=== PATIENT | female | born 1950 | race Caucasian/White ===

== ENCOUNTER → 2017-10-15 | Outpatient (CLI) | payer MEDICARE | END | disposition home or self-care (01) | LOC: LABPAT 11:15 | PROVIDERS: ATTEND Orthopaedic Surgery | DX: Z01.812 Encounter for preprocedural laboratory examination (principal); M16.11 Unilateral primary osteoarthritis, right hip | CPT/HCPCS: 36415; 87070 ==

== ENCOUNTER 2017-10-26 05:35 | Inpatient (IN) | payer MEDICARE ==
[2017-10-21 12:19] VITALS: BMI 38.7
--- NOTE | 2017-10-25 10:22 | HP ---
HISTORY AND PHYSICAL REASON FOR ADMISSION: Surgery is scheduled for 10/26/2017 Joy Faust is a 67-year-old patient seen with symptomatic right hip osteoarthritis. After having treatment options discussed, she elected to proceed with right total hip arthroplasty. Consent regarding procedure was obtained. Medical clearance was provided by Dr. White. PAST MEDICAL HISTORY: Hypertension, asthma, egw-vowozdz-jvaqflsvf diabetes. PAST SURGICAL HISTORY: Bilateral knee arthroscopy. MEDICATIONS: Ibuprofen, metformin, enalapril. ALLERGIES: LATEX, NICKEL. SOCIAL HISTORY: Patient denies tobacco use. PHYSICAL EXAMINATION: Evaluation of the right hip: Range of motion is severely limited with severe pain. There is diffuse tenderness about the hip girdle. Positive impingement sign. Straight leg raise negative. Distal neurovascular exam is intact. RADIOGRAPHS: Right hip radiographs reveal severe osteoarthritis. IMPRESSION: 1. Right hip osteoarthritis. 2. Hypertension. 3. Sli-kbkdwde-xystswiad diabetes. PLAN: Direct anterior right total hip arthroplasty. Surgery is scheduled for 10/26/2017. MMODL / IJN: [id number] /
[~2017-10-26 05:35] MED LIST: ACETAMINOPHEN TAB 500 MG TAB PO ONE; DEXAMETHASONE SOD PHOSPHATE 10 MG/ML 1 ML VIAL IV ONE; LIDOCAINE 1% 20 ML VIAL (10MG/ML) FOR IV START INTRADERMA PRN; MELOXICAM 7.5 MG TAB PO ONE; MIDAZOLAM 2 MG/2 ML VIAL IV PRN; ONDANSETRON ODT 4 MG TAB PO ONE; TRANEXAMIC ACID 1,000 MG in SODIUM CHLORIDE 0.9% 50 ML IVPB ONE; ceFAZolin IN SWFI 2 GM/20 ML SYRINGE IVP ONE; fentaNYL (PF) 50 MCG/ML 2 ML AMP IV PRN
[2017-10-26] MEDS: LACTATED RINGERS 1,000 ML IV SCH (06:27)
[2017-10-26] MEDS ORDERED: ONDANSETRON 4 MG/2 ML VIAL ONE (06:31)
[2017-10-26] MEDS: ONDANSETRON 4 MG/2 ML VIAL IVP ONE ×2 (06:35→07:10)
[2017-10-26] MEDS: SCOPOLAMINE 1.5MG/72HR PATCH TRANSDERM ONE ×2 (06:35→07:13)
[2017-10-26] MEDS ORDERED: MIDAZOLAM 2 MG/2 ML VIAL IVP ONE (06:58)
[2017-10-26 07:05] LABS: Glucose,Whole Blood 108 mg/dL (75-99)
[2017-10-26] MEDS ORDERED: ROPIVACAINE 246.25 MG, EPINEPHrine 0.5 MG, KETOROLAC 30 MG, cloNIDine HCL/PF 80 MCG, WA... MISCELLANE ONE ×10 (07:27→07:41)
[2017-10-26] MEDS ORDERED: TRANEXAMIC ACID 1,000 MG/10 ML VIAL ONE (07:28)
[2017-10-26] MEDS ORDERED: MIDAZOLAM 2 MG/2 ML VIAL ONE (07:28)
[2017-10-26] MEDS ORDERED: SODIUM CHLORIDE 0.9% 100 ML BAG ONE (07:28)
[2017-10-26] MEDS ORDERED: diphenhydrAMINE 50 MG/ML 1 ML VIAL ONE (07:28)
[2017-10-26] MEDS ORDERED: fentaNYL (PF) 50 MCG/ML 2 ML AMP ONE (07:28)
[2017-10-26] MEDS ORDERED: ceFAZolin 3,000 MG in SODIUM CHLORIDE 0.9% IRRIGATIO 3,000 ML IRRIGATION ONE (08:08)
[2017-10-26] MEDS ORDERED: LACTATED RINGERS 1,000 ML IV ONE (08:52)
[2017-10-26] MEDS ORDERED: NALOXONE 0.4 MG/ML 1 ML VIAL IV PRN (09:58)
[2017-10-26] MEDS ORDERED: HYDROmorphone 2 MG TAB PO PRN ×2 (09:58)
[2017-10-26] MEDS ORDERED: HYDROmorphone 4 MG TABLET PO PRN (09:58)
[2017-10-26] MEDS ORDERED: ONDANSETRON 4 MG/2 ML VIAL IVP PRN (09:58)
[2017-10-26] MEDS ORDERED: hydrOXYzine PAMOATE 25 MG CAP PO PRN (09:58)
--- NOTE | 2017-10-26 09:58 | P.OP ---
Date of Procedure: 10/26/17 Preoperative Diagnosis: Right hip osteoarthritis Postoperative Diagnosis: Right hip osteoarthritis Procedure(s) Performed: Direct anterior right total hip arthroplasty Implants: 1. Depuy Corail KLA size 12 press-fit femoral stem 2. Depuy pinnacle press-fit acetabular shell 52 mm 3. Depuy pinnacle polyethylene acetabular liner neutral 32 mm ID 52 mm OD 4. Biolox delta ceramic femoral head +532 mm Anesthesia: regional (Fascia iliaca block), local, spinal Surgeon: Landry Iverson Mangle Press Catcher #1: Rashad Van Estimated Blood Loss (ml): 200 Pathology: other (Femoral head) Condition: stable Disposition: PACU Indications for Procedure: 67-year-old patient seen was symptomatic right hip osteoarthritis. After treatment options were discussed, she elected to proceed with total hip arthroplasty. Operative Findings: See description of procedure Description of Procedure: The patient was taken to the operative suite after having undergone a fascia iliaca block by the department of anesthesia. Patient underwent a spinal anesthetic by the department of anesthesia. Patient was then transferred to the [place] table. Patient was given preoperative IV antibiotics and TXA. Both lower extremities were placed in standard leg spars. The hip was then prepped and draped in the normal sterile orthopedic fashion. A standard anterior incision was made beginning 3 cm lateral and 1 cm distal to the ASIS extending 10 cm. Dissection was then carried down through the subcutaneous soft tissues down to the fascia overlying the tensor fascia victor hugo. An incision was now made through the fascia. Careful dissection was taken down exposing the tensor fascia victor hugo muscle. A Cobra retractor was now placed along the medial femoral neck and a second one along the lateral femoral neck. The venous circumflex vessels were now identified, cauterized and clipped. We identified the anterior hip capsule. An incision was made through the hip capsule along the lateral border. Tag sutures were then placed along the anterior capsule and lateral capsule. We then performed a capsulotomy. Retractors were now placed around the femoral neck itself. A Cobra retractor was now placed along the anterior acetabulum. Good exposure was now noted of the femoral head/neck complex. Residual labrum was debrided out. We placed the extremity into 3 turns of fine traction. We were then able to introduce a skid in between the femoral head and acetabulum. A placed a awl into the femoral head. We took 2 turns of traction off the extremity. Rotation was now released. The femoral head was then dislocated without difficulty. Additional releasing was performed of the capsule. The head was then reduced. All traction was released. A femoral neck cut was now made with a sagittal saw. It was completed with an osteotome at the lateral neck area. The femoral head was now removed without difficulty. The extremity was now rotated to 45 of external rotation. It was locked in position. Residual labrum was now debrided out. Serial reaming was performed of the acetabulum. Once we reached the appropriate size and a trial was position and fit nicely. The appropriate size was now chosen opened and made available. The wound was irrigated with pulse lavage mechanical irrigation. It was introduced into the acetabulum without difficulty. The C-arm/fluoroscopy was now brought into the operative field. We made sure we had a true AP pelvic view. We now under direct C-arm/ fluoroscopy introduced into the acetabular component with appropriate version and inclination. It was well seated and stable but I still introduced 2 screws to enhanced the fixation. The C-arm was pulled back. An appropriate liner was introduced and clicked into position. It was felt to be not all the way seated. After multiple attempts I went ahead and and removed the liner. A second liner was utilized and it locked into position nicely. At this point retractors were removed. The extremity was now placed into 120 external rotation with no traction. The leg was now dropped to the ground and adducted. Appropriate retractors were now positioned along the proximal femur. We also placed our femoral look into position. Additional capsular releasing was performed to gain access to the proximal femur. We now used a box osteotome. A canal finder was now utilized. Serial broaching was now performed until we reached the appropriate size with good overall rotational stability. Appropriate calcar planing was performed. A trial head/neck was placed into position. The hip was now reduced. The C-arm/fluoroscopy was brought back into the operative field. A spot film was obtained of the nonoperative hip. A spot film was obtained of the trial components. Overlays were performed, we noted good overall alignment and positioning for determining leg length. The C- arm/fluoroscopy was pulled back. Retractors were repositioned and the hip was dislocated. The leg was again taken down to the ground and adducted. Appropriate retractors were repositioned as well as the femoral hook. All trial components were removed. The wound was irrigated with pulse lavage mechanical irrigation. The femoral implant was opened along with the femoral head. The femoral implant was introduced with good purchase and fixation noted. The femoral head was introduced with good positioning and fixation noted. Retractors were now removed. The hip was now reduced. There appeared be good positioning of the hip. This was confirmed under fluoroscopy and a spot film was obtained to document that. A second gram of TXA was given. Bipolar cautery had been utilized intermittently through the procedure for hemostasis. The wound was irrigated copiously with pulse lavage mechanical irrigation. The superficial soft tissues were infiltrated with local analgesic. The fascia was repaired with Vicryl suture. The subcutaneous soft tissues were repaired in layers with Vicryl suture. The skin was approximated with pernio/Dermabond. Sterile dressings were applied. Patient was then awakened, transferred to a bed and taken to recovery in stable condition. John SNYDER assisted with the procedure.
--- NOTE | 2017-10-26 09:59 | XR ---
Limited right HISTORY: Anterior hip replacement Intraoperative C-arm image documents the procedure
--- NOTE | 2017-10-26 10:00 | FL ---
Fluoroscopy HISTORY: Anterior hip replacement 30 seconds fluoroscopy time supplied to the referring clinician. 1 intraoperative C-arm images docum ent the procedure. See dictated report from orthopedic surgery.
[2017-10-26 10:46] LABS: Glucose,Whole Blood 143 mg/dL (75-99)
[2017-10-26] MEDS: traMADol 50 MG TAB PO SCH ×3 (12:43→22:00)
--- NOTE | 2017-10-26 13:24 | P.ONQ ---
Anesthesiology Proc Note - PNB - Peripheral Nerve Block Performed Right Fascia Iliaca Single Time Out Performed: Yes Procedure Start Time: 06:59 Procedure Stop Time: 07:04 Indication: Acute Post-Operative Pain, Requested by physician Sedation Type: Awake Preparation: Sterile Prep Position: Supine Needle Size: 100mm (4") Needle Gauge: 21 Technique: Ultrasound Injectate: 0.5% Ropivacaine (see comment for volume) (ropi .25% 40cc) Blood Aspirated: No Pain Paresthesia on Injection Noted: No Resistance on Injection: Normal Events: Uneventful and Well Tolerated
[2017-10-26] MEDS: ceFAZolin IN SWFI 2 GM/20 ML SYRINGE IVP SCH (16:06)
[2017-10-26] MEDS: HYDROcodone/APAP 7.5-325MG 1 EACH TAB PO PRN (16:06)
--- NOTE | 2017-10-26 16:08 | CONS ---
CONSULTATION DATE OF CONSULTATION: 10/26/2017 REASON FOR CONSULTATION: Medical management requested by Dr. Iverson. CONSULTATION: This is a 67-year-old patient of Dr. White. Chronic stable medical conditions include asthma, diabetes, hypertension, thyromegaly, and osteoarthritis of the hands. The patient has undergone right total hip arthroplasty. Some pain is present. No nausea or vomiting. Did tolerate a clear liquid breakfast. No chest pain. No cardiac history. Sitting up on bed. Patient is bothered by arthritis in the hands specifically and also some other joints. REVIEW OF SYSTEMS: CONSTITUTIONAL: None. HEENT: None. RESPIRATORY: None. CARDIOVASCULAR: None. GASTROINTESTINAL: None. GENITOURINARY: None. MUSCULOSKELETAL: Arthritic pain, especially in the hand and other joints. DERMATOLOGICAL: None. HEMATOLOGICAL: None. LYMPHATICS: None. PSYCHIATRY: None. NEUROLOGICAL: None. PAST MEDICAL HISTORY: 1. Asthma. 2. Diabetes, type 2. 3. Hypertension. 4. Osteoarthritis. 5. Thyromegaly, being followed. PAST SURGICAL HISTORY: 1. Breast surgery. 2. . 3. Hysterectomy. 4. Bilateral knee replacements. PAST PSYCH HISTORY: PTSD. SOCIAL HISTORY: Does not smoke. Alcohol rarely. . FAMILY HISTORY: Hyperlipidemia, hypertension. HOME MEDICATIONS: 1. Metformin 500 mg p.o. daily. 2. Multivitamin 1 tablet p.o. daily. 3. Maxzide 1 puff daily p.r.n. 4. Vasotec 10 mg b.i.d. ALLERGIES: 1. LATEX. 2. NICKEL. 3. MORPHINE. PHYSICAL EXAMINATION: Temperature 97.1, pulse 72, respiration 18, blood pressure 120/57, pulse ox 94% on room air. GENERAL APPEARANCE: Well built; BMI 38.7. Sitting on bed, comfortable. EYES: Pupils equal. Conjunctivae normal. HEENT: External appearance of nose and ears normal. Oral cavity normal. NECK: JVD not raised. Mass not palpable. RESPIRATORY: Effort normal. Lungs are clear. CARDIOVASCULAR: First and second sounds normal. No edema. ABDOMEN: Soft, nontender. Liver and spleen not palpable. LYMPHATIC: No lymph node palpable in neck or axillae. PSYCHIATRY: Alert and oriented x3. Mood and affect normal. NEUROLOGICAL: Pupils equal. Cranial nerves grossly intact. Power and sensation grossly intact. MUSCULOSKELETAL: Evidence of OA, especially in the hands. Dressing over the right hip. INVESTIGATIONS: Accu-Cheks are noted. ASSESSMENT: 1. Right total hip arthroplasty. 2. Primary osteoarthritis, especially of the hands and other joints. 3. Thyromegaly, being followed as an outpatient. 4. Essential hypertension. 5. Diabetes mellitus, type 2, on oral hypoglycemic. 6. Intermittent asthma, controlled. 7. Obesity; body mass index 38.7. PLAN: Home medications are resumed. Accu-Cheks to be followed. DVT prophylaxis. Patient is getting Lovenox per Dr. Iverson. Will have patient see a dietitian for weight loss measures. Patient should follow with Dr. White after discharge. Care was discussed. Thank you, Dr. Iverson. ENMANUEL / ASHOKN: [id number] /
[2017-10-26 17:24] LABS: Glucose,Whole Blood 178 mg/dL (75-99)
[2017-10-26] MEDS: INSULIN ASPART 100 UNIT/ML 1 ML 10 ML VIAL SQ SCH (18:11)
[2017-10-26 19:50] VITALS: RESP 16
[2017-10-26 20:57] LABS: Glucose,Whole Blood 138 mg/dL (75-99)
[2017-10-26] MEDS ORDERED: SENNOSIDES-DOCUSATE SODIUM 1 EACH TAB PO SCH (21:00)
[2017-10-26] MEDS: metFORMIN 500 MG TAB PO SCH (21:55)
[2017-10-27] MEDS: LACTATED RINGERS 1,000 ML IV SCH (02:06)
[2017-10-27] MEDS: ceFAZolin IN SWFI 2 GM/20 ML SYRINGE IVP SCH (02:06)
[2017-10-27] MEDS: HYDROcodone/APAP 7.5-325MG 1 EACH TAB PO PRN ×3 (02:19→13:09)
[2017-10-27 07:15] LABS: Glucose,Whole Blood 119 mg/dL (75-99)
[2017-10-27 07:20] VITALS: BP 122/69; PULSE 82; TEMP 97.8
[2017-10-27 07:59] LABS: Basophils % (A) 0 %; Eosinophils % (A) 0 %; HCT 34.3 % (34.0-46.0); HGB 11.2 gm/dL (11.4-16.0); Lymphocytes # (A) 1.1 k/uL (1.0-4.8); Lymphocytes % (A) 14 %; MCH 28.5 pg (25.0-35.0); MCHC 32.5 g/dL (31.0-37.0); MCV 87.6 fL (80.0-100.0); Mean Platelet Volume 8.9; Monocytes # (A) 0.5 k/uL (0-1.0); Monocytes % (A) 7 %; Neutrophils # (A) 5.8 k/uL (1.3-7.7); Neutrophils % (A) 77 %; Platelet Count 206 k/uL (150-450); RBC 3.92 m/uL (3.80-5.40); RDW 13.9 % (11.5-15.5); WBC 7.6 k/uL (3.8-10.6)
[2017-10-27] MEDS: INSULIN ASPART 100 UNIT/ML 1 ML 10 ML VIAL SQ SCH ×2 (08:10→13:04)
[2017-10-27] MEDS ORDERED: FAMOTIDINE 20 MG TAB PO SCH (09:00)
[2017-10-27] MEDS ORDERED: ENOXAPARIN 40 MG/0.4 ML SYRINGE SQ SCH (09:00)
[2017-10-27] MEDS ORDERED: MELOXICAM 7.5 MG TAB PO SCH (09:00)
[2017-10-27] MEDS ORDERED: LISINOPRIL 20 MG TAB PO SCH (09:00)
[2017-10-27] MEDS: traMADol 50 MG TAB PO SCH (10:10)
[2017-10-27 11:54] LABS: Glucose,Whole Blood 114 mg/dL (75-99)
[2017-10-27] MEDS: metFORMIN 500 MG TAB PO SCH (13:04)
--- NOTE | 2017-10-27 13:26 | P.PN ---
Subjective Progress Note Date: 10/27/17 Principal diagnosis: Status post right total hip arthroplasty Patient seen today resting in her hospital bed, she appears comfortable. Her pain is well-controlled. She's ambulated well with therapy, she is urinating on her own. She denies any headaches, lightheadedness, chest pain or shortness of breath. Objective - Vital Signs Vital signs: Vital Signs Temp 97.8 F 10/27/17 07:17 Pulse 82 10/27/17 07:17 Resp 16 10/27/17 07:17 BP 122/69 10/27/17 07:17 Pulse Ox 96 10/27/17 07:17 Intake & Output 10/26/17 10/27/17 10/27/17 18:59 06:59 18:59 Intake Total 1598 1200 Output Total 1100 Balance 498 1200 Weight 108.862 kg Intake: IV 1101 Intake, IV Titration 160 1200 Amount Lactated Ringers 1,000 ml 160 1200 @ 20 mls/hr IV .Q24H COLLEEN Rx#:[id number] Oral 337 Output: Urine 900 Estimated Blood Loss 200 Other: # Voids 2 2 - Exam Right lower extremity: Incision is clean, dry, and intact. The prineo tape is in good condition. There is minimal soft tissue swelling and ecchymosis surrounding the medial and lateral aspects of the incision. Calf is soft, no tenderness with palpation. Plantar flexion, dorsiflexion, EHL, FHL are intact. Sensory exam to light touch throughout the extremity is intact, dorsal pedis pulses 2+. - Labs CBC & Chem 7: 10/27/17 06:42 Labs: Abnormal Lab Results - Last 24 Hours (Table) 10/26/17 10/26/17 10/27/17 Range/Units 17:21 20:54 06:42 Hgb 11.2 L (11.4-16.0) gm/dL POC Glucose (mg/dL) 178 H 138 H (75-99) mg/dL 10/27/17 10/27/17 Range/Units 07:01 11:49 Hgb (11.4-16.0) gm/dL POC Glucose (mg/dL) 119 H 114 H (75-99) mg/dL Assessment and Plan Plan: Assessment: Postoperative day #1 status post right total hip arthroplasty Plan: Pain control, we'll discharge home on oral medication GI and DVT prophylaxis, we'll discharge home on aspirin 325 mg twice a day Home physical therapy and nursing is to discharge Wound care was discussed with patient Medical recommendations Discharge planning: Patient will likely be discharged home today Time with Patient: Less than 30
--- NOTE | 2017-10-27 13:32 | P.DS ---
Providers Date of admission: 10/26/17 05:35 Expected date of discharge: 10/27/17 Attending physician: Landry Iverson Consults: 10/26/17 09:58 Consult Physician Routine Consulting Provider: Parvez White Consult Reason/Comments: Medical management Do you want consulting provider notified?: Yes 10/26/17 11:08 Consult Physician Routine Consulting Provider: Hernán Rae Consult Reason/Comments: medical management Do you want consulting provider notified?: Yes Primary care physician: Parvez White Hospital Course: Date of admission: 10/26/2017 Date of discharge: 10/27/2014 Admission diagnosis: Status post right total hip arthroplasty Discharge diagnosis: Same Attending physician: Dr. Iverson Surgical procedures: Right total hip arthroplasty Brief history: Patient is a 67-year-old female with a history of progressive primary right hip osteoarthritis. At this point patient has failed conservative treatment measures and has opted to proceed with a elective right total hip arthroplasty. Hospital course: Details of patient's surgery can be found in operative report. Patient tolerated the procedure well and was subsequently transported to orthopedic floor. Patient's orthopeidc and medical care was provided daily. Patient had daily laboratory tests performed for evaluation of overall blood counts. Patient had daily physical therapy to include strengthening range of motion as well as education with walker ambulation. Patient was treated with Lovenox for their postoperative DVT prophylaxis during their inpatient stay. Patient was noted to have a relatively uneventful postoperative course. Patient reported satisfactory pain control with oral pain medications by postoperative day 0. Patient showed satisfactory progress with physical therapy. Patient moved steadily through the program and had no difficulty meeting the goals by postoperative day 1. Given patient's otherwise satisfactory course and having met physical therapy goals, plan is to discharge patient home on postoperative day 1. Discharge condition/disposition: Patient will be discharged home in stable condition. Discharge medications: Instructions are given on resumption of patient's normal daily medications per primary care recommendation, in addition patient will be prescribed Gowrie 7.5 mg/325 mg, tramadol 50 mg, Colace 100 mg, aspirin 325 mg. Discharge instructions: 1. Wound care and infection precautions, keep incision dry and covered while showering, no lotions, creams, moisturizers. No soaking, tubs, pools, hottubs. Do not scrub over the incision. 2. Weight-bear as tolerated with walker / cane until follow-up. 3. Ice and elevate when necessary. Do not exceed 20 minutes per hour with ice pack. 4. Utilize compression sleeve until seen at first follow up appointment. 5. Visiting nursing care. 6. Home physical therapy including home CPM. 7. Pain meds and anticoagulants per prescription. 8. Pain medication has potential to cause constipation. Increase oral fluid and fiber intake. Contact primary care provider if you have not had a bowel movement within 48 hours after discharge 9. No anti-inflammatory medication until discussed at first post operative visit, this including Motrin, Aleve, Mobic, Diclofenac. 10. Follow up in office at 2 weeks postop with John Van PA-C 11. Follow up with your primary care doctor 7-10 days after discharge. 12. Contact [facility] with any questions, . Procedures: Right total hip arthroplasty Patient Condition at Discharge: Good Plan - Discharge Summary Discharge Rx Participant: No New Discharge Prescriptions: New Aspirin 325 mg PO BID #60 tab Docusate [Colace] 100 mg PO DAILY #30 capsule HYDROcodone/APAP 7.5-325MG [Gowrie 7.5] 1 - 2 each PO Q6HR PRN #60 tab PRN Reason: Pain traMADol HCl [Ultram] 50 mg PO Q6H PRN #40 tab PRN Reason: Pain No Action Enalapril [Vasotec] 10 mg PO BID Multivitamins, Thera [Multivitamin (formulary)] 1 tab PO DAILY Maxair 1 puff INHALATION RT-DAILY PRN PRN Reason: Shortness Of Breath metFORMIN HCL [metFORMIN HCL ER] 500 mg PO DAILY Discharge Medication List Enalapril [Vasotec] 10 mg PO BID 10/21/17 [History] Maxair 1 puff INHALATION RT-DAILY PRN 10/21/17 [History] Multivitamins, Thera [Multivitamin (formulary)] 1 tab PO DAILY 10/21/17 [History ] metFORMIN HCL [metFORMIN HCL ER] 500 mg PO DAILY 10/26/17 [History] Aspirin 325 mg PO BID #60 tab 10/27/17 [Rx] Docusate [Colace] 100 mg PO DAILY #30 capsule 10/27/17 [Rx] HYDROcodone/APAP 7.5-325MG [[place]rie 7.5] 1 - 2 each PO Q6HR PRN #60 tab 10/27/17 [ Rx] traMADol HCl [Ultram] 50 mg PO Q6H PRN #40 tab 10/27/17 [Rx] Follow up Appointment(s)/Referral(s): Parvez White MD [Primary Care Provider] - 11/05/17 8:20 am [facility], [NON-STAFF] - Rashad Van PAC [PHYSICIAN PULLEY MAN] - 11/11/17 2:30 pm Activity/Diet/Wound Care/Special Instructions: Orthopedic Discharge Instructions: 1. Wound care and infection precautions, keep incision dry and covered while showering, no lotions, creams, moisturizers. No soaking, pools, hot tubs. Do not scrub over incision. 2. Weight-bear as tolerated with walker / cane until follow-up. 3. Ice and elevate when necessary. Do not exceed 20 minutes per hour with ice pack. 4. Utilize compression sleeve until seen at first follow up appointment. 5. Visiting nursing care. 6. Home physical therapy. 7. Pain meds and anticoagulants per prescription. 8. Pain medication has potential to cause constipation. Increase oral fluid and fiber intake. Contact primary care provider if you have not had a bowel movement within 48 hours after discharge. 9. No anti-inflammatory medication until discussed at first post operative visit, this including Motrin, Aleve, Mobic, Diclofenac,. 10. Follow up in office at 2 weeks postop with John Van PA-C 11. Follow up with your primary care doctor 7-10 days after discharge. 12. Contact [facility] with any questions, . Discharge Disposition: HOME WITH HOME HEALTH SERVICES
--- NOTE | 2017-10-27 23:19 | PN ---
PROGRESS NOTE DATE OF SERVICE: 10/27/2017 PRESENTING COMPLAINT: Right hip surgery. INTERVAL HISTORY: This patient is seen by me this morning, doing better. Pain is controlled. No nausea, vomiting, did tolerate a diet. Did work with Therapy. REVIEW OF SYSTEMS: Done for constitutional, cardiovascular, GI, pulmonary; relevant findings as above. CURRENT MEDICATIONS: Reviewed. EXAMINATION: Temperature 97.8, pulse 82, respirations 16, blood pressure 122/69, pulse ox 96% on room air. GENERAL APPEARANCE: Sitting up, comfortable. EYES: Pupils equal. Conjunctivae normal. HEENT: External appearance of nose and ears normal. Oral cavity normal. NECK: JVD not raised. Mass not palpable. RESPIRATORY: Effort normal. Lungs are clear. CARDIOVASCULAR: First and second sounds normal. No edema. ABDOMEN: Soft, nontender. Liver and spleen not palpable. PSYCHIATRY: Alert and oriented x3. Mood and affect were normal. INVESTIGATIONS: White count 7.6, hemoglobin 11.2. ASSESSMENT: 1. Right total hip arthroplasty. 2. Primary osteoarthritis, especially in the hands and other joints. 3. Thyromegaly being followed as an outpatient. 4. Essential hypertension. 5. Diabetes mellitus type 2 on oral hypoglycemic. 6. Intermittent asthma, controlled. 7. Obesity, BMI 38%. PLAN: Continue medication and treatment plan. Follow. MMODL / IJN: [id number] /
== END 2017-10-27 14:00 | disposition home health service (06) | DRG 470 ==
LOC: 2ORMAIN 05:35 → 3SUR 10:06
PROVIDERS: ADMIT Orthopaedic Surgery; ATTEND Orthopaedic Surgery
PROC: 0SR904A Replacement of Right Hip Joint with Ceramic on Polyethylene Synthetic Substitute, Uncemented, Open Approach (ICD-10-PCS; principal; 2017-10-26 07:30)
DX: M16.11 Unilateral primary osteoarthritis, right hip (principal); E66.9 Obesity, unspecified; E01.0 Iodine-deficiency related diffuse (endemic) goiter; E11.9 Type 2 diabetes mellitus without complications; F43.10 Post-traumatic stress disorder, unspecified; I10 Essential (primary) hypertension; J45.20 Mild intermittent asthma, uncomplicated; M19.041 Primary osteoarthritis, right hand; M19.042 Primary osteoarthritis, left hand; Z68.38 Body mass index [BMI] 38.0-38.9, adult; Z79.84 Long term (current) use of oral hypoglycemic drugs; Z82.49 Family history of ischemic heart disease and other diseases of the circulatory system; Z90.710 Acquired absence of both cervix and uterus; Z96.653 Presence of artificial knee joint, bilateral; Z79.1 Long term (current) use of non-steroidal anti-inflammatories (NSAID); Z79.899 Other long term (current) drug therapy; Z91.040 Latex allergy status; Z91.048 Other nonmedicinal substance allergy status
CPT/HCPCS: 73501; 85025; 86850; 86900; 86901; 88300

== ENCOUNTER 2018-01-03 14:57 | Emergency (ER) | payer MEDICARE ==
[2018-01-03 15:09] VITALS: TEMP 97.9
--- NOTE | 2018-01-03 15:17 | ED ---
General Adult HPI - General Chief complaint: Extremity Problem,Nontraumatic Stated complaint: post surg pain Time Seen by Provider: 01/03/18 14:59 Source: patient, RN notes reviewed, old records reviewed Mode of arrival: EMS Limitations: no limitations - History of Present Illness Initial comments: This is a 67-year-old female the ER for evaluation. Patient with persistent hip pain, persistent hip pain status post surgical intervention. Patient has no new or acute injury, no fever, no neurological complaints. No loss of bowel or bladder. - Related Data Home Medications Medication Instructions Recorded Confirmed Enalapril [Vasotec] 10 mg PO BID 10/21/17 10/26/17 Maxair 1 puff INHALATION RT-DAILY PRN 10/21/17 10/26/17 Multivitamins, Thera [Multivitamin 1 tab PO DAILY 10/21/17 10/26/17 (formulary)] metFORMIN HCL [metFORMIN HCL ER] 500 mg PO DAILY 10/26/17 10/26/17 Previous Rx's Medication Instructions Recorded Aspirin 325 mg PO BID #60 tab 10/27/17 Docusate [Colace] 100 mg PO DAILY #30 capsule 10/27/17 HYDROcodone/APAP 7.5-325MG [[place] 1 - 2 each PO Q6HR PRN #60 tab 10/27/17 7.5] traMADol HCl [Ultram] 50 mg PO Q6H PRN #40 tab 10/27/17 Allergies Allergy/AdvReac Type Severity Reaction Status Date / Time latex Allergy Rash/Hives Verified 10/26/17 10:56 nickel Allergy See Comment Verified 10/26/17 10:56 morphine AdvReac Nausea & Verified 10/26/17 10:56 Vomiting Review of Systems ROS Statement: Those systems with pertinent positive or pertinent negative responses have been documented in the HPI. ROS Other: All systems not noted in ROS Statement are negative. Past Medical History Past Medical History: Asthma, Diabetes Mellitus, Hypertension, Osteoarthritis ( OA), Pneumonia, Thyroid Disorder Additional Past Medical History / Comment(s): Patient states took herself off her Metformin 10 days ago because it gives her diarrhea, has appt with Encrinologist to discuss. Hx Bronchitis, last 2 months ago, hx Pneumonia, last 1 yr ago, has had fluid in right ear for 50 yrs, enlarged thyroid, hx episodes of spastic colitis. History of Any Multi-Drug Resistant Organisms: None Reported Past Surgical History: Breast Surgery, Section, Hysterectomy, Joint Replacement, Orthopedic Surgery Additional Past Surgical History / Comment(s): Ceserean Section X2, bilateral knee replacements, left breast biopsy X2, bilateral carpal tunnel. Past Anesthesia/Blood Transfusion Reactions: Previous Problems w/ Anesthesia Additional Past Anesthesia/Blood Transfusion Reaction / Comment(s): Morphine makes her nauseated. Had difficulty waking up in the s with anesthesia but no problems since. Past Psychological History: PTSD Smoking Status: Never smoker Past Alcohol Use History: Rare Past Drug Use History: None Reported - Past Family History Mother Family Medical History: Hyperlipidemia, Hypertension Father Family Medical History: Coronary Artery Disease (CAD), Hypertension, Osteoarthritis (OA) General Exam Limitations: no limitations General appearance: alert, in no apparent distress Head exam: Present: atraumatic, normocephalic, normal inspection Eye exam: Present: normal appearance, PERRL, EOMI. Absent: scleral icterus, conjunctival injection, periorbital swelling ENT exam: Present: normal exam, mucous membranes moist Neck exam: Present: normal inspection. Absent: tenderness, meningismus, lymphadenopathy Respiratory exam: Present: normal lung sounds bilaterally. Absent: respiratory distress, wheezes, rales, rhonchi, stridor Cardiovascular Exam: Present: regular rate, normal rhythm, normal heart sounds. Absent: systolic murmur, diastolic murmur, rubs, gallop, clicks GI/Abdominal exam: Present: soft, normal bowel sounds. Absent: distended, tenderness, guarding, rebound, rigid Extremities exam: Present: normal inspection, full ROM, normal capillary refill. Absent: tenderness, pedal edema, joint swelling, calf tenderness Back exam: Present: normal inspection Neurological exam: Present: alert, oriented X3, CN II-XII intact Psychiatric exam: Present: normal affect, normal mood Skin exam: Present: warm, dry, intact, normal color. Absent: rash Course Vital Signs 01/03/18 01/03/18 01/03/18 15:03 16:30 16:35 Temperature 97.9 F Pulse Rate 90 92 93 Respiratory 18 18 19 Rate Blood Pressure 168/79 148/75 124/60 O2 Sat by Pulse 97 100 97 Oximetry 01/03/18 01/03/18 01/03/18 16:40 16:44 16:50 Temperature Pulse Rate 99 94 95 Respiratory 23 18 20 Rate Blood Pressure 157/84 156/87 137/79 O2 Sat by Pulse 97 100 98 Oximetry - Reevaluation(s) Reevaluation #1: 01/03/18 17:02 (Dr. Solomon, patient okay for discharge and follow-up with Dr Iverson this week 01/03/18 17:02 Reevaluation #2: 01/03/18 17:02 Patient is currently awake and alert, will be to place nonambulatory Procedures - Orthopedic Joint Reduction Joint #1 Consent Obtained: verbal consent Time Out Performed: Yes Side: right Joint Reduction Location: hip Analgesia: procedural sedation Technique Used: traction/counter-traction Post-Reduction Neuro Exam: intact Post-Reduction Vascular Exam: intact Post Reduction X-Ray Obtained: Yes Post Reduction X-Ray Results: reduced Splint Applied: Yes Patient Tolerated Procedure: well - Procedural Sedation Procedural Sedation Start Time: 16:30 Procedural Sedation Stop Time: 17:00 Indications: fracture/dislocation reduction ASA Class: II Mallampati Airway Score: 2 Preparation: mechanic sound technician applied, pulse oximeter, capnometry used IV Propofol Dose (mgs): 200 Complications: none Interventions: oxygen applied Patient Tolerated Procedure: well Medical Decision Making - Medical Decision Making Other 5) 67 female the ER right hip dislocation. Patient had hip relocated here in the emergency room. We'll be placing brace and patient can be discharged home - Radiology Data Radiology results: report reviewed (X-ray right hip positive for dislocation), image reviewed Disposition Clinical Impression: Hip dislocation, right Disposition: HOME SELF-CARE Condition: Good Instructions: Hip Dislocation (ED) Is patient prescribed a controlled substance at d/c from ED?: No Referrals: Landry Iverson DO [Doctor of Osteopathic Medicine] - 1-2 days
--- NOTE | 2018-01-03 16:00 | XR ---
EXAMINATION TYPE: XR Hip Complete RT DATE OF EXAM: 01/03/2018 CLINICAL HISTORY: Pain TECHNIQUE: AP and frogleg views of the right hip are obtained. COMPARISON: None. FINDINGS: Presence of a metallic hip prosthesis with posterior inferior dislocation of the metallic l isthesis within the proximal right femur with respect to the acetabulum. IMPRESSION: Presence of metallic prosthesis with dislocation of the proximal femoral arthroplasty inf eriorly.
[2018-01-03] MEDS ORDERED: SODIUM CHLORIDE 0.9% 1,000 ML IV STA (16:02)
[2018-01-03] MEDS ORDERED: PROPOFOL 10 MG/ML 20 ML VIAL IV STA (16:20)
[2018-01-03] MEDS ORDERED: MIDAZOLAM 1 MG/ML 5 ML VIAL IV STA (16:40)
[2018-01-03 16:52] VITALS: RESP 20
--- NOTE | 2018-01-03 17:11 | XR ---
EXAMINATION TYPE: XR Hip Limited RT DATE OF EXAM: 01/03/2018 COMPARISON: Prior x-ray from the same day at 3:35 PM. HISTORY: Prior dislocation post reduction film. TECHNIQUE: Single view of the hip labeled post reduction FINDINGS: Satisfactory repositioning of the femoral head prosthesis inside the acetabular fossa. IMPRESSION: Satisfactory reduction of the right hip as compared prior described dislocation film.
[2018-01-03 17:22] VITALS: BP 158/92; PULSE 92
== END 2018-01-03 17:47 | disposition home or self-care (01) ==
LOC: EC 14:57
DX: T84.020A Dislocation of internal right hip prosthesis, initial encounter (principal); J45.909 Unspecified asthma, uncomplicated; E11.9 Type 2 diabetes mellitus without complications; I10 Essential (primary) hypertension; Z79.84 Long term (current) use of oral hypoglycemic drugs; Z79.899 Other long term (current) drug therapy; Z88.5 Allergy status to narcotic agent; Z91.040 Latex allergy status; Z91.09 Other allergy status, other than to drugs and biological substances; Z96.653 Presence of artificial knee joint, bilateral; Z96.641 Presence of right artificial hip joint; Z53.8 Procedure and treatment not carried out for other reasons
CPT/HCPCS: 73501; 73502; 99284; 27265; 99152; 96360; J2704

== ENCOUNTER → 2018-03-01 | Outpatient (CLI) | payer MEDICARE ==
--- NOTE | 2018-03-01 14:48 | US ---
EXAMINATION TYPE: US thyroid st tissue head/neck DATE OF EXAM: 03/01/2018 COMPARISON: US 09/19/2014 CLINICAL HISTORY: E04.1 Enlarged thyroid; Neck fullness per patient GLAND SIZE: Right Lobe: 4.2 x 1.5 x 1.0 cm Overall Parenchyma: homogenous Left Lobe: 4.6 x 2.3 x 2.0 cm Overall Parenchyma: homogeneous Isthmus Thickness: 0.3 cm NODULES RIGHT: # of nodules measured on right: 1 largest of multiple 1. 1.0 X 0.9 x 0.7 cm hypoechoic solid nodule at the lower pole with well-defined margins; . Thi s nodule is wider than tall and shows intranodular vascularity. Prior size: no prior LEFT: # of nodules measured on left: 2 1. 3.0 X 2.2 x 1.8 cm hypoechoic mixed nodule at the mid pole with well-defined margins; . This no dule is wider than tall and shows intranodular vascularity. Prior size: 2.2 x 1.3 x 1.5 cm 2. 0.4 X 0.4 x 0.2 cm hypoechoic mixed nodule at the upper pole with well-defined margins; . This n odule is wider than tall and shows no intranodular vascularity. ISTHMUS: # of nodules measured in the isthmus: 0 Bilateral neck scanned, no evidence of lymphadenopathy. IMPRESSION: Stable nonspecific thyroid nodularity.
== END | disposition home or self-care (01) ==
LOC: RADUSWWP 14:02
PROVIDERS: ATTEND Internal Medicine Endocrinology, Diabetes & Metabolism
DX: E04.2 Nontoxic multinodular goiter (principal)
CPT/HCPCS: 76536

== ENCOUNTER → 2018-06-11 | Outpatient (CLI) | payer MEDICARE ==
--- NOTE | 2018-06-14 10:39 | MM ---
Reason for exam: screening (asymptomatic). Last mammogram was performed 1 year ago. History: Patient is postmenopausal. 2 benign excisional biopsies of the left breast. Physical Findings: A clinical breast exam by your physician is recommended on an annual basis and results should be correlated with mammographic findings. MG 3D Screening Mammo W/Cad Bilateral CC and MLO view(s) were taken. Prior study comparison: June 10, 2017, bilateral MG 3d screening mammo w/cad. September 18, 2015, mammogram, performed at [facility]. There are scattered fibroglandular densities. No significant changes when compared with prior studies. ASSESSMENT: Benign, BI-RAD 2 RECOMMENDATION: Routine screening mammogram of both breasts in 1 year.
== END | disposition home or self-care (01) ==
LOC: RADMAMWWP 09:07
PROVIDERS: ATTEND Family Medicine
DX: Z12.31 Encounter for screening mammogram for malignant neoplasm of breast (principal)
CPT/HCPCS: 77063; 77067

== ENCOUNTER → 2019-06-01 | Outpatient (CLI) | payer MEDICARE ==
--- NOTE | 2019-06-01 08:08 | US ---
EXAMINATION TYPE: US thyroid st tissue head/neck DATE OF EXAM: 06/01/2019 COMPARISON: Thyroid ultrasound March 01, 2018 CLINICAL HISTORY: E04.1 non toxic thyroid nodule. follow up exam GLAND SIZE: Right Lobe: 4.2 x 1.3 x 1.4 cm Overall Parenchyma: heterogenous Left Lobe: 4.6 x 1.8 x 2.2 cm Overall Parenchyma: heterogeneous Isthmus Thickness: 0.3 cm NODULES RIGHT: # of nodules measured on right: 1 1. 1.1 X 0.9 x 0.7 cm hypoechoic solid nodule at the lower pole with well-defined margins. This no dule is wider than tall and shows intranodular vascularity. Prior size: 1.0 x 0.9 x 0.7 cm LEFT: # of nodules measured on left: 1 1. 2.4 X 1.4 x 1.9 cm mixed nodule at the mid pole with well-defined margins. This nodule is wider than tall and shows intranodular vascularity. Prior size: 3.0 x 2.2 x 1.8 cm ISTHMUS: # of nodules measured in the isthmus: 0 Bilateral neck scanned, no evidence of lymphadenopathy. Redemonstration of heterogeneous normal-sized thyroid with stable bilateral nodules, larger nodule le ft side is predominantly cystic. No new suspicious nodules are evident. IMPRESSION: No new greater than 1 cm or enlarging solid or cystic thyroid nodules are identified.
== END | disposition home or self-care (01) ==
LOC: RADUSWWP 07:07
PROVIDERS: ATTEND Internal Medicine Endocrinology, Diabetes & Metabolism
DX: E04.1 Nontoxic single thyroid nodule (principal)
CPT/HCPCS: 76536

== ENCOUNTER 2019-11-17 15:35 | Inpatient (IN) | payer MEDICARE ==
--- NOTE | 2019-11-17 16:18 | ED ---
Abdominal Pain HPI - General Chief Complaint: Abdominal Pain Stated Complaint: gallbladder issues Time Seen by Provider: 11/17/19 15:47 Source: patient, RN notes reviewed Mode of arrival: ambulatory Limitations: no limitations - History of Present Illness Initial Comments: This is a 69-year-old female who presents with complaints of the onset at 9 PM last evening of sharp right-sided flank pain. She states is worse was about 9/10 currently about 4/10 nausea vomiting cough fevers chills sweats no rash. She states it does get worse with deep breathing. He states he gets better when she lays on her right side. No history of kidney stones other is a family history of a daughter with kidney stones. Ulcers gallbladder disease her family. See by Dr. Cason sent here for further evaluation MD Complaint: abdominal pain, flank pain - Related Data Home Medications Medication Instructions Recorded Confirmed Enalapril [Vasotec] 10 mg PO BID 10/21/17 10/26/17 Maxair 1 puff INHALATION RT-DAILY PRN 10/21/17 10/26/17 Multivitamins, Thera [Multivitamin 1 tab PO DAILY 10/21/17 10/26/17 (formulary)] metFORMIN HCL [metFORMIN HCL ER] 500 mg PO DAILY 10/26/17 10/26/17 Previous Rx's Medication Instructions Recorded Aspirin 325 mg PO BID #60 tab 10/27/17 Docusate [Colace] 100 mg PO DAILY #30 capsule 10/27/17 HYDROcodone/APAP 7.5-325MG [[place] 1 - 2 each PO Q6HR PRN #60 tab 10/27/17 7.5] traMADol HCl [Ultram] 50 mg PO Q6H PRN #40 tab 10/27/17 Allergies Allergy/AdvReac Type Severity Reaction Status Date / Time latex Allergy Rash/Hives Verified 11/17/19 15:42 nickel Allergy See Comment Verified 11/17/19 15:42 morphine AdvReac Nausea & Verified 11/17/19 15:42 Vomiting Review of Systems ROS Statement: Those systems with pertinent positive or pertinent negative responses have been documented in the HPI. ROS Other: All systems not noted in ROS Statement are negative. Past Medical History Past Medical History: Asthma, Diabetes Mellitus, Hypertension, Osteoarthritis (OA), Pneumonia, Thyroid Disorder Additional Past Medical History / Comment(s): enlarged thyroid, hx episodes of spastic colitis. History of Any Multi-Drug Resistant Organisms: None Reported Past Surgical History: Breast Surgery, Section, Hysterectomy, Joint Replacement, Orthopedic Surgery Additional Past Surgical History / Comment(s): Ceserean Section X2, bilateral knee replacements, left breast biopsy X2, bilateral carpal tunnel. Past Anesthesia/Blood Transfusion Reactions: Previous Problems w/ Anesthesia Additional Past Anesthesia/Blood Transfusion Reaction / Comment(s): Morphine makes her nauseated. Had difficulty waking up in the s with anesthesia but no problems since. Past Psychological History: PTSD Smoking Status: Never smoker Past Alcohol Use History: Rare Past Drug Use History: None Reported - Past Family History Mother Family Medical History: Hyperlipidemia, Hypertension Father Family Medical History: Coronary Artery Disease (CAD), Hypertension, Osteoarthritis (OA) General Exam - General Exam Comments Initial Comments: This is a well-developed well-nourished awake alert oriented 3 female Limitations: no limitations General appearance: alert, in no apparent distress Head exam: Present: atraumatic, normocephalic, normal inspection Eye exam: Present: normal appearance, PERRL, EOMI. Absent: scleral icterus, conjunctival injection, periorbital swelling ENT exam: Present: normal exam, mucous membranes moist Neck exam: Present: normal inspection. Absent: tenderness, meningismus, lymphadenopathy Respiratory exam: Present: normal lung sounds bilaterally. Absent: respiratory distress, wheezes, rales, rhonchi, stridor Cardiovascular Exam: Present: regular rate, normal rhythm, normal heart sounds. Absent: systolic murmur, diastolic murmur, rubs, gallop, clicks GI/Abdominal exam: Present: soft, tenderness (Some right upper quadrant tenderness palpation no guarding rebound masses or bruits some mild flank tenderness on the right to palpation), normal bowel sounds. Absent: distended, guarding, rebound, rigid, bruit, pulsatile mass Extremities exam: Present: normal inspection, full ROM, normal capillary refill. Absent: tenderness, pedal edema, joint swelling, calf tenderness Back exam: Present: normal inspection, full ROM. Absent: CVA tenderness (R), CVA tenderness (L) Neurological exam: Present: alert, oriented X3, CN II-XII intact Psychiatric exam: Present: normal affect, normal mood Skin exam: Present: warm, dry, intact, normal color. Absent: rash Course Vital Signs 11/17/19 11/17/19 15:40 17:48 Temperature 99.0 F 98.4 F Pulse Rate 102 H 85 Respiratory 18 18 Rate Blood Pressure 126/89 156/81 O2 Sat by Pulse 95 98 Oximetry Medical Decision Making - Medical Decision Making I did discuss findings with the patient and her and also with Dr. Arias and Dr. Rae. Patient will be admitted with IV antibiotics nothing by mouth after midnight. - Lab Data Result diagrams: 11/17/19 16:15 11/17/19 16:15 Lab Results 11/17/19 11/17/19 11/17/19 Range/Units 16:15 16:15 16:15 WBC 9.5 (3.8-10.6) k/uL RBC 5.08 (3.80-5.40) m/uL Hgb 15.1 (11.4-16.0) gm/dL Hct 44.9 (34.0-46.0) % MCV 88.4 (80.0-100.0) fL MCH 29.8 (25.0-35.0) pg MCHC 33.7 (31.0-37.0) g/dL RDW 14.2 (11.5-15.5) % Plt Count 246 (150-450) k/uL Neutrophils % 71 % Lymphocytes % 20 % Monocytes % 6 % Eosinophils % 2 % Basophils % 0 % Neutrophils # 6.7 (1.3-7.7) k/uL Lymphocytes # 1.9 (1.0-4.8) k/uL Monocytes # 0.5 (0-1.0) k/uL Eosinophils # 0.1 (0-0.7) k/uL Basophils # 0.0 (0-0.2) k/uL Sodium 138 (137-145) mmol/L Potassium 4.2 (3.5-5.1) mmol/L Chloride 103 (98-107) mmol/L Carbon Dioxide 27 (22-30) mmol/L Anion Gap 8 mmol/L BUN 11 (7-17) mg/dL Creatinine 0.57 (0.52-1.04) mg/dL Est GFR (CKD-EPI)AfAm >90 (>60 ml/min/1.73 sqM) Est GFR (CKD-EPI)NonAf >90 (>60 ml/min/1.73 sqM) Glucose 128 H (74-99) mg/dL Calcium 10.2 (8.4-10.2) mg/dL Magnesium 1.9 (1.6-2.3) mg/dL Total Bilirubin 0.7 (0.2-1.3) mg/dL AST 22 (14-36) U/L ALT 18 (4-34) U/L Alkaline Phosphatase 90 (38-126) U/L Creatine Kinase 40 (30-135) U/L Troponin I (0.000-0.034) ng/mL Total Protein 7.5 (6.3-8.2) g/dL Albumin 4.5 (3.5-5.0) g/dL Amylase 50 (30-110) U/L Lipase 86 (23-300) U/L Urine Color Light Yellow Urine Appearance Clear (Clear) Urine pH 5.5 (5.0-8.0) Ur Specific [place] 1.007 (1.001-1.035) Urine Protein Negative (Negative) Urine Glucose (UA) Negative (Negative) Urine Ketones Negative (Negative) Urine Blood Negative (Negative) Urine Nitrite Negative (Negative) Urine Bilirubin Negative (Negative) Urine Urobilinogen <2.0 (<2.0) mg/dL Ur Leukocyte Esterase Negative (Negative) 11/17/19 Range/Units 16:15 WBC (3.8-10.6) k/uL RBC (3.80-5.40) m/uL Hgb (11.4-16.0) gm/dL Hct (34.0-46.0) % MCV (80.0-100.0) fL MCH (25.0-35.0) pg MCHC (31.0-37.0) g/dL RDW (11.5-15.5) % Plt Count (150-450) k/uL Neutrophils % % Lymphocytes % % Monocytes % % Eosinophils % % Basophils % % Neutrophils # (1.3-7.7) k/uL Lymphocytes # (1.0-4.8) k/uL Monocytes # (0-1.0) k/uL Eosinophils # (0-0.7) k/uL Basophils # (0-0.2) k/uL Sodium (137-145) mmol/L Potassium (3.5-5.1) mmol/L Chloride (98-107) mmol/L Carbon Dioxide (22-30) mmol/L Anion Gap mmol/L BUN (7-17) mg/dL Creatinine (0.52-1.04) mg/dL Est GFR (CKD-EPI)AfAm (>60 ml/min/1.73 sqM) Est GFR (CKD-EPI)NonAf (>60 ml/min/1.73 sqM) Glucose (74-99) mg/dL Calcium (8.4-10.2) mg/dL Magnesium (1.6-2.3) mg/dL Total Bilirubin (0.2-1.3) mg/dL AST (14-36) U/L ALT (4-34) U/L Alkaline Phosphatase (38-126) U/L Creatine Kinase (30-135) U/L Troponin I <0.012 (0.000-0.034) ng/mL Total Protein (6.3-8.2) g/dL Albumin (3.5-5.0) g/dL Amylase (30-110) U/L Lipase (23-300) U/L Urine Color Urine Appearance (Clear) Urine pH (5.0-8.0) Ur Specific [place] (1.001-1.035) Urine Protein (Negative) Urine Glucose (UA) (Negative) Urine Ketones (Negative) Urine Blood (Negative) Urine Nitrite (Negative) Urine Bilirubin (Negative) Urine Urobilinogen (<2.0) mg/dL Ur Leukocyte Esterase (Negative) - Radiology Data Radiology results: report reviewed (I did review the imaging and report evidence of cholecystitis also left-sided kidney stone no obstruction), image reviewed Disposition Clinical Impression: Acute cholecystitis, Biliary colic Disposition: ADMITTED IP TO THIS [facility] Condition: Fair Referrals: Parvez White MD [Primary Care Provider] - 1-2 days
[2019-11-17 16:25] LABS: Basophils % (A) 0 %; Eosinophils # (A) 0.1 k/uL (0-0.7); Eosinophils % (A) 2 %; HCT 44.9 % (34.0-46.0); HGB 15.1 gm/dL (11.4-16.0); Lymphocytes # (A) 1.9 k/uL (1.0-4.8); Lymphocytes % (A) 20 %; MCH 29.8 pg (25.0-35.0); MCHC 33.7 g/dL (31.0-37.0); MCV 88.4 fL (80.0-100.0); Mean Platelet Volume 8.9; Monocytes # (A) 0.5 k/uL (0-1.0); Monocytes % (A) 6 %; Neutrophils # (A) 6.7 k/uL (1.3-7.7); Neutrophils % (A) 71 %; Platelet Count 246 k/uL (150-450); RBC 5.08 m/uL (3.80-5.40); RDW 14.2 % (11.5-15.5); WBC 9.5 k/uL (3.8-10.6)
[2019-11-17 16:27] LABS: Appearance,Urine Clear (Clear); Bilirubin,Urine Negative (Negative); Blood,Urine Negative (Negative); Color,Urine Light Yellow; Glucose,Urine (UA) Negative (Negative); Ketones,Urine Negative (Negative); Leukocyte Esterase,Urine Negative (Negative); Nitrite,Urine Negative (Negative); PH, Urine 5.5 (5.0-8.0); Protein,Urine Negative (Negative); Specific Gravity,Urine 1.007 (1.001-1.035); Urobilinogen,Urine <2.0 mg/dL (<2.0)
--- NOTE | 2019-11-17 16:32 | XR ---
EXAMINATION TYPE: XR chest 2V DATE OF EXAM: 11/17/2019 COMPARISON: None INDICATION: Right upper quadrant pain TECHNIQUE: Frontal and lateral views of the chest are obtained. FINDINGS: The heart size is normal. The pulmonary vasculature is normal. The lungs are clear. No free air is under the diaphragm. IMPRESSION: 1. No acute pulmonary process.
--- NOTE | 2019-11-17 16:33 | XR ---
EXAMINATION TYPE: XR KUB DATE OF EXAM: 11/17/2019 COMPARISON: INDICATION: Abdomen pain TECHNIQUE: Single view abdomen upright view FINDINGS: There is a normal bowel gas pattern. Some nonspecific small bowel gas is present. No suspicious air-f luid levels or differential air-fluid levels are present. No free air is evident. Psoas margins are normal. No organomegaly is present. Right hip prosthesis is present. IMPRESSION: 1. Nonspecific abdomen.
[2019-11-17 16:34] LABS: ALT 18 U/L (4-34); AST 22 U/L (14-36); African American GFR (CKD) >90 (>60 ml/min/1.73 sqM); Albumin 4.5 g/dL (3.5-5.0); Alkaline Phosphatase 90 U/L (38-126); Amylase 50 U/L (30-110); Anion Gap 8 mmol/L; Blood Urea Nitrogen 11 mg/dL (7-17); Calcium 10.2 mg/dL (8.4-10.2); Carbon Dioxide 27 mmol/L (22-30); Chloride 103 mmol/L (98-107); Creatine Kinase 40 U/L (30-135); Glucose 128 mg/dL (74-99); Magnesium 1.9 mg/dL (1.6-2.3); Non-African American GFR(CKD) >90 (>60 ml/min/1.73 sqM); Potassium 4.2 mmol/L (3.5-5.1); Sodium 138 mmol/L (137-145); Total Bilirubin 0.7 mg/dL (0.2-1.3); Total Protein 7.5 g/dL (6.3-8.2)
--- NOTE | 2019-11-17 17:47 | CT ---
EXAMINATION TYPE: CT abdomen pelvis wo con DATE OF EXAM: 11/17/2019 COMPARISON: None INDICATION: Right flank pain. DLP: 1471.4 mGycm, Automated exposure control for dose reduction was used. CONTRAST: 0 mL of Isovue 300. Study performed without Oral Contrast TECHNIQUE: Axial images were obtained from above the diaphragm to the pubic rami in the axial plane a t 5 mm thick sections. Reconstructed images are reviewed on the computer in the coronal plane. FINDINGS: Limited CT sections are obtained the lung bases. The lung bases are clear. CT ABDOMEN: Liver: There is a 1.4 cm cyst measuring 6 Hounsfield units in the anterior medial right mid liver. Li alexa otherwise appears unremarkable. There is hepatomegaly at 28.9 cm in craniocaudal dimension. Spleen: Normal Pancreas: Normal Adrenal glands: The adrenal glands are normal. Gallbladder: Some sludge may be within the gallbladder. Kidneys: No masses are evident. No hydronephrosis is present. No cysts are present. There is a 0.3 cm superior pole nonobstructing renal stone left kidney. Aorta: Vascular calcification is within the aorta. Inferior vena cava: Normal. CT PELVIS: No dilated loops of bowel are evident. Diverticular changes are within the sigmoid colon. Studies wit hout oral contrast limiting bowel evaluation. Appendix: Normal as visualized. Urinary bladder: Normal. This is somewhat limited due to beam hardening artifact from right hip prost hesis. Genitourinary structures: Uterus and ovaries are not identified. Osseous structures: No suspicious lytic or sclerotic lesions. Degenerative disc changes present L5-S1 . Facet degenerative changes are within the lumbar spine. IMPRESSIONS: 1. Nonobstructing superior pole left renal stone. No hydronephrosis or hydroureter is evident. 2. Diverticulosis without acute diverticulitis. 3. Hepatomegaly with a simple appearing hepatic cysts. 4. There may be some sludge within the gallbladder.
--- NOTE | 2019-11-17 19:37 | US ---
EXAMINATION TYPE: US gallbladder DATE OF EXAM: 11/17/2019 COMPARISON: CT 2019 CLINICAL HISTORY: Right upper quadrant pain. Right flank pain x 1 day EXAM MEASUREMENTS: Liver Length: 20.4 cm Gallbladder Wall: 0.3 cm CBD: 0.8 cm Right Kidney: 11.2 x 4.3 x 4.8 cm Difficult and limited study due to morbidly obese patient Pancreas: visualized portions wnl, tail obscured by overlying midline bowel gas Liver: enlarged, attenuating, increased echogenicity, heterogeneous 1.8cm hypoechoic area adjacent t o gallbladder, possible focal sparing Gallbladder: limited visualization due to shadowing, appears to be large stone, wall borderline thic kened Evidence for sonographic Cook's sign: no CBD: dilated Right Kidney: wnl IMPRESSION: 1. Nonspecific hypoechoic area within the right lobe liver. Some through transmission appears to be p resent suggest this could be a complex cyst. This would correspond to the suspected simple cyst on CT performed on the same date. 2. Hepatomegaly. 3. Cholelithiasis. Some wall thickening may be present. Consider acute cholecystitis.
[2019-11-17] MEDS ORDERED: NALOXONE 0.4 MG/ML 1 ML VIAL IV PRN (20:54)
[2019-11-17] MEDS ORDERED: PIPERACILLIN-TAZOBACTAM 3.375 GM in SODIUM CHLORIDE 0.9% 100 ML IVPB STA (21:00)
[2019-11-17] MEDS: SODIUM CHLORIDE 0.9% 1,000 ML IV SCH (22:14)
[2019-11-17] MEDS: LISINOPRIL 10 MG TAB PO SCH (22:42)
[2019-11-17] MEDS: ATORVASTATIN 10 MG TAB PO SCH (22:42)
[2019-11-18] MEDS: SODIUM CHLORIDE 0.9% 1,000 ML IV SCH ×2 (05:26→18:22)
[2019-11-18 06:42] LABS: Basophils % (A) 0 %; Eosinophils # (A) 0.1 k/uL (0-0.7); Eosinophils % (A) 1 %; HCT 42.7 % (34.0-46.0); HGB 13.1 gm/dL (11.4-16.0); Lymphocytes # (A) 1.6 k/uL (1.0-4.8); Lymphocytes % (A) 25 %; MCH 27.6 pg (25.0-35.0); MCHC 30.7 g/dL (31.0-37.0); MCV 89.9 fL (80.0-100.0); Monocytes # (A) 0.5 k/uL (0-1.0); Monocytes % (A) 9 %; Neutrophils # (A) 3.8 k/uL (1.3-7.7); Neutrophils % (A) 62 %; Platelet Count 208 k/uL (150-450); RBC 4.75 m/uL (3.80-5.40); RDW 13.9 % (11.5-15.5); WBC 6.1 k/uL (3.8-10.6)
[2019-11-18 06:52] LABS: ALT 13 U/L (4-34); AST 17 U/L (14-36); African American GFR (CKD) >90 (>60 ml/min/1.73 sqM); Albumin 3.6 g/dL (3.5-5.0); Alkaline Phosphatase 70 U/L (38-126); Anion Gap 5 mmol/L; Blood Urea Nitrogen 10 mg/dL (7-17); Calcium 8.9 mg/dL (8.4-10.2); Carbon Dioxide 29 mmol/L (22-30); Chloride 104 mmol/L (98-107); Glucose 109 mg/dL (74-99); Non-African American GFR(CKD) >90 (>60 ml/min/1.73 sqM); Potassium 4.2 mmol/L (3.5-5.1); Sodium 138 mmol/L (137-145); Total Bilirubin 0.6 mg/dL (0.2-1.3); Total Protein 6.2 g/dL (6.3-8.2)
[2019-11-18] MEDS: LISINOPRIL 10 MG TAB PO SCH ×2 (08:48→21:09)
[2019-11-18] MEDS ORDERED: HYDROmorphone 1 MG/ML 1 ML SYRINGE IVP PRN (08:58)
[2019-11-18] MEDS ORDERED: HYDROcodone/APAP 5-325MG 1 EACH TAB PO PRN (08:58)
--- NOTE | 2019-11-18 08:59 | P.GSHP ---
<Harriet Moran A - Last Filed: 11/18/19 08:53> History of Present Illness H&P Date: 11/18/19 Chief Complaint: Abdominal pain CHIEF COMPLAINT: abdominal pain HISTORY OF PRESENT ILLNESS: 69-year-old female who presented to emergency room with a chief complaint of abdominal pain. Patient states her pain began Thursday around 2100. She reports eating homemade pizza earlier in the evening, but states she eats this 1-2 times a month and has never had an issue before. Denies previous pain like this before. Pain was localized to right upper quadrant. She denies nausea or vomiting. Denies fever or chills. PAST MEDICAL HISTORY: See list. PAST SURGICAL HISTORY: See list. SOCIAL HISTORY: No illicit drug use. REVIEW OF SYSTEMS: CONSTITUTIONAL: Denies fever or chills. HEENT: Denies blurred vision, vision changes, or eye pain. Denies hemoptysis CARDIOVASCULAR: Denies chest pain or pressure. RESPIRATORY: No shortness of breath. GASTROINTESTINAL: Refer to HPI for pertinent findings HEMATOLOGIC: Denies bleeding disorders. GENITOURINARY: Denies any blood in urine. SKIN: Denies pruitis. Denies rash. PHYSICAL EXAM: VITAL SIGNS: Reviewed. GENERAL: Well-developed in no acute distress. HEENT: No sclera icterus. Extraocular movements grossly intact. Moist buccal mucosa. Head is atraumatic, normocephalic. ABDOMEN: Soft. Nondistended. Mild tenderness on palpation of right upper quadrant NEUROLOGIC: Alert and oriented. Cranial nerves II through XII grossly intact. LABORATORY DATA: WBC 9.5. Hemoglobin 15.1. Platelet count 246. Bilirubin 0.7. AST 22. ALT 18. IMAGIN. Gallbladder ultrasound: limited visualization due to shadowing. Appears to be large stone. Gallbladder wall borderline thickened. 2. CT abdomen and pelvis: nonobstructing left renal stone. Diverticulosis without acute diverticulitis. Hepatomegaly with simple appearing hepatic cysts. Sludge within the gallbladder. ASSESSMENT: 1. Abdominal pain 2. Acute cholecystitis PLAN: Low fat diet today. NPO at midnight Continue IV Zosyn Medical management per Dr. Rae Patient to undergo laparoscopic cholecystectomy tomorrow with Dr. Arias Nurse practitioner note has been reviewed by physician. Signing provider agrees with the documented findings, assessment, and plan of care. Past Medical History Past Medical History: Asthma, Diabetes Mellitus, Hypertension, Osteoarthritis (OA), Pneumonia, Thyroid Disorder Additional Past Medical History / Comment(s): enlarged thyroid, hx episodes of spastic colitis. History of Any Multi-Drug Resistant Organisms: None Reported Past Surgical History: Breast Surgery, Section, Hysterectomy, Joint Replacement, Orthopedic Surgery Additional Past Surgical History / Comment(s): Ceserean Section X2, bilateral k nee replacements, left breast biopsy X2, bilateral carpal tunnel. Past Anesthesia/Blood Transfusion Reactions: Previous Problems w/ Anesthesia Additional Past Anesthesia/Blood Transfusion Reaction / Comment(s): Morphine makes her nauseated. Had difficulty waking up in the s with anesthesia but no problems since. Past Psychological History: PTSD Smoking Status: Never smoker Past Alcohol Use History: Rare Past Drug Use History: None Reported - Past Family History Mother Family Medical History: Hyperlipidemia, Hypertension Father Family Medical History: Coronary Artery Disease (CAD), Hypertension, Osteoarthritis (OA) Medications and Allergies Home Medications Medication Instructions Recorded Confirmed Type Enalapril [Vasotec] 10 mg PO BID 10/21/17 11/17/19 History Multivitamins, Thera [Multivitamin 1 tab PO DAILY 10/21/17 11/17/19 History (formulary)] Calcium Gummy 2 tab PO DAILY 11/17/19 11/17/19 History Cholecalciferol [Vitamin D3 (25 2,000 unit PO DAILY 11/17/19 11/17/19 History Mcg = 1000 Iu)] Rosuvastatin Calcium [Crestor] 5 mg PO HS 11/17/19 11/17/19 History Hydrocodone/Acetaminophen [[place] 1 tab PO Q6HR PRN #10 tab 11/18/19 Rx 5-325] Allergies Allergy/AdvReac Type Severity Reaction Status Date / Time latex Allergy Rash/Hives Verified 11/17/19 20:58 nickel Allergy Rash/Hives Verified 11/17/19 20:58 morphine AdvReac Nausea & Verified 11/17/19 20:58 Vomiting quinine AdvReac depression Verified 11/17/19 20:58 Tetracyclines AdvReac Nausea & Verified 11/17/19 20:58 Vomiting Surgical - Exam Vital Signs Temp Pulse Resp BP Pulse Ox 99.0 F 102 H 18 126/89 95 11/17/19 15:40 11/17/19 15:40 11/17/19 15:40 11/17/19 15:40 11/17/19 15:40 Results - Labs 11/18/19 05:47 11/18/19 05:47 Abnormal Lab Results - Last 24 Hours (Table) 11/17/19 11/18/19 11/18/19 Range/Units 16:15 05:47 05:47 MCHC 30.7 L (31.0-37.0) g/dL Glucose 128 H 109 H (74-99) mg/dL Total Protein 6.2 L (6.3-8.2) g/dL Diabetes panel 11/17/19 11/18/19 Range/Units 16:15 05:47 Sodium 138 138 (137-145) mmol/L Potassium 4.2 4.2 (3.5-5.1) mmol/L Chloride 103 104 (98-107) mmol/L Carbon Dioxide 27 29 (22-30) mmol/L BUN 11 10 (7-17) mg/dL Creatinine 0.57 0.58 (0.52-1.04) mg/dL Glucose 128 H 109 H (74-99) mg/dL Calcium 10.2 8.9 (8.4-10.2) mg/dL AST 22 17 (14-36) U/L ALT 18 13 (4-34) U/L Alkaline Phosphatase 90 70 (38-126) U/L Total Protein 7.5 6.2 L (6.3-8.2) g/dL Albumin 4.5 3.6 (3.5-5.0) g/dL Calcium panel 11/17/19 11/18/19 Range/Units 16:15 05:47 Calcium 10.2 8.9 (8.4-10.2) mg/dL Albumin 4.5 3.6 (3.5-5.0) g/dL Pituitary panel 11/17/19 11/18/19 Range/Units 16:15 05:47 Sodium 138 138 (137-145) mmol/L Potassium 4.2 4.2 (3.5-5.1) mmol/L Chloride 103 104 (98-107) mmol/L Carbon Dioxide 27 29 (22-30) mmol/L BUN 11 10 (7-17) mg/dL Creatinine 0.57 0.58 (0.52-1.04) mg/dL Glucose 128 H 109 H (74-99) mg/dL Calcium 10.2 8.9 (8.4-10.2) mg/dL Adrenal panel 11/17/19 11/18/19 Range/Units 16:15 05:47 Sodium 138 138 (137-145) mmol/L Potassium 4.2 4.2 (3.5-5.1) mmol/L Chloride 103 104 (98-107) mmol/L Carbon Dioxide 27 29 (22-30) mmol/L BUN 11 10 (7-17) mg/dL Creatinine 0.57 0.58 (0.52-1.04) mg/dL Glucose 128 H 109 H (74-99) mg/dL Calcium 10.2 8.9 (8.4-10.2) mg/dL Total Bilirubin 0.7 0.6 (0.2-1.3) mg/dL AST 22 17 (14-36) U/L ALT 18 13 (4-34) U/L Alkaline Phosphatase 90 70 (38-126) U/L Total Protein 7.5 6.2 L (6.3-8.2) g/dL Albumin 4.5 3.6 (3.5-5.0) g/dL <Philip Arias - Last Filed: 11/18/19 12:32> History of Present Illness As above. Patient with right upper quadrant and right flank discomfort that began 2 days ago. Ultrasound and CAT scan show evidence of gallbladder wall inflammatory changes. Pain is somewhat improved today although remains tender. We'll proceed with laparoscopic cholecystectomy tomorrow. Possible open. Risks of bleeding, infection, bile leak, bile duct injury, retained common bile duct stone, trocar injury, conversion to an open procedure, hernia, persistent pain, anesthesia related complications were reviewed. The patient understands and wishes to proceed. Surgical - Exam Vital Signs Temp Pulse Resp BP Pulse Ox 99.0 F 102 H 18 126/89 95 11/17/19 15:40 11/17/19 15:40 11/17/19 15:40 11/17/19 15:40 11/17/19 15:40 Results - Labs 11/18/19 05:47 11/18/19 05:47 Abnormal Lab Results - Last 24 Hours (Table) 11/17/19 11/18/19 11/18/19 Range/Units 16:15 05:47 05:47 MCHC 30.7 L (31.0-37.0) g/dL Glucose 128 H 109 H (74-99) mg/dL Total Protein 6.2 L (6.3-8.2) g/dL Diabetes panel 11/17/19 11/18/19 Range/Units 16:15 05:47 Sodium 138 138 (137-145) mmol/L Potassium 4.2 4.2 (3.5-5.1) mmol/L Chloride 103 104 (98-107) mmol/L Carbon Dioxide 27 29 (22-30) mmol/L BUN 11 10 (7-17) mg/dL Creatinine 0.57 0.58 (0.52-1.04) mg/dL Glucose 128 H 109 H (74-99) mg/dL Calcium 10.2 8.9 (8.4-10.2) mg/dL AST 22 17 (14-36) U/L ALT 18 13 (4-34) U/L Alkaline Phosphatase 90 70 (38-126) U/L Total Protein 7.5 6.2 L (6.3-8.2) g/dL Albumin 4.5 3.6 (3.5-5.0) g/dL Calcium panel 11/17/19 11/18/19 Range/Units 16:15 05:47 Calcium 10.2 8.9 (8.4-10.2) mg/dL Albumin 4.5 3.6 (3.5-5.0) g/dL Pituitary panel 11/17/19 11/18/19 Range/Units 16:15 05:47 Sodium 138 138 (137-145) mmol/L Potassium 4.2 4.2 (3.5-5.1) mmol/L Chloride 103 104 (98-107) mmol/L Carbon Dioxide 27 29 (22-30) mmol/L BUN 11 10 (7-17) mg/dL Creatinine 0.57 0.58 (0.52-1.04) mg/dL Glucose 128 H 109 H (74-99) mg/dL Calcium 10.2 8.9 (8.4-10.2) mg/dL Adrenal panel 11/17/19 11/18/19 Range/Units 16:15 05:47 Sodium 138 138 (137-145) mmol/L Potassium 4.2 4.2 (3.5-5.1) mmol/L Chloride 103 104 (98-107) mmol/L Carbon Dioxide 27 29 (22-30) mmol/L BUN 11 10 (7-17) mg/dL Creatinine 0.57 0.58 (0.52-1.04) mg/dL Glucose 128 H 109 H (74-99) mg/dL Calcium 10.2 8.9 (8.4-10.2) mg/dL Total Bilirubin 0.7 0.6 (0.2-1.3) mg/dL AST 22 17 (14-36) U/L ALT 18 13 (4-34) U/L Alkaline Phosphatase 90 70 (38-126) U/L Total Protein 7.5 6.2 L (6.3-8.2) g/dL Albumin 4.5 3.6 (3.5-5.0) g/dL
[2019-11-18] MEDS: PIPERACILLIN-TAZOBACTAM 3.375 GM in SODIUM CHLORIDE 0.9% 100 ML IVPB SCH ×3 (11:13→23:59)
[2019-11-18] MEDS: PANTOPRAZOLE 40 MG/10 ML VIAL IVP SCH (11:13)
[2019-11-18] MEDS: HEPARIN SODIUM,PORCINE 5,000 UNIT/ML 1 ML VIAL SQ SCH ×2 (18:05→23:59)
--- NOTE | 2019-11-18 19:56 | P.CONS ---
History of Present Illness - Reason for Consult Consult date: 11/18/19 Medical management Requesting physician: Philip Arias - Chief Complaint Abdominal pain - History of Present Illness Consultation: This is a very pleasant 69-year-old patient of Dr. White. Chronic stable medical conditions include asthma, diabetes, hypertension, osteoarthritis, on Thursday evening patient started of with right upper quadrant and right flank pain. No nausea vomiting. No fever no chills. Pain is also significant. Decided to come down to the ER. Ultrasound did show evidence of gallstones and some gallbladder wall thickening. Patient's felt of acute cholecystitis. Admitted for the same. Denies any chest pain or palpitations. Due to go down to the or initially later today than postponed till tomorrow morning because of scheduling. Review of systems: GEN.: Tired EYES: None HEENT: None NECK: None RESPIRATORY: None CARDIOVASCULAR: None GASTROINTESTINAL: As above GENITOURINARY: None MUSCULOSKELETAL: Joint pains LYMPHATICS: None HEMATOLOGICAL: None PSYCHIATRY: None NEUROLOGICAL: None Past medical history to include: Asthma, diabetes, hypertension, osteoarthritis, enlarged thyroid, spastic colitis Social history: Doesn't smoke or drink alcohol. . Physical examination: VITAL SIGNS: 98.4, 69, 16, 142/66, 93% on room air GENERAL: [BMI 42, sitting a slightly uncomfortable. EYES: Pupils equal. Conjunctiva normal. HEENT: External appearance of nose and ears normal, oral cavity grossly normal. NECK: JVD not raised; masses not palpable. HEART: First and second heart sounds are normal; no edema. LUNGS: Respiratory rate normal; clear to auscultation. ABDOMEN: Soft, right upper quadrant tenderness with positive Cook sign, no guarding or rigidity, liver spleen not palpable, no masses palpable. PSYCH: Alert and oriented x3; mood and affect normal. NEUROLOGICAL: Cranial nerves grossly intact; no facial asymmetry, power and sensation grossly intact. LYMPHATICS: No lymph nodes palpable in the axilla and neck INVESTIGATIONS, reviewed in the clinical context: White count 6.1 hemoglobin 13.1 platelets 208 progression 4.2 creatinine 0.58 UA negative COVID-19 ECF-not detected Computed tomography scan of the abdomen-hepatomegaly, some sludge within the gallbladder. Stone in the left upper kidney nonobstructive, diverticulosis. Gallbladder ultrasound-enlarged liver, large stone gallbladder wall thickening Chest x-ray film-unremarkable Assessment: -Acute cholecystitis with choledocholithiasis, symptomatic -Possibly nonalcoholic fatty liver disease -Colonic diverticulosis, asymptomatic -Morbid obesity BMI 42.0 -Intermittent asthma -Diabetes mellitus type 2 -Essential hypertension -Primary osteoarthritis Plan: Home medications resumed. Patient is on IV Zosyn. IV fluids. DVT prophylaxis. Care was discussed with the patient. Question answered. Thank you Dr. Arias Past Medical History Past Medical History: Asthma, Diabetes Mellitus, Hypertension, Osteoarthritis (OA), Pneumonia, Thyroid Disorder Additional Past Medical History / Comment(s): enlarged thyroid, hx episodes of spastic colitis. History of Any Multi-Drug Resistant Organisms: None Reported Past Surgical History: Breast Surgery, Section, Hysterectomy, Joint Replacement, Orthopedic Surgery Additional Past Surgical History / Comment(s): Ceserean Section X2, bilateral knee replacements, left breast biopsy X2, bilateral carpal tunnel. Past Anesthesia/Blood Transfusion Reactions: Previous Problems w/ Anesthesia Additional Past Anesthesia/Blood Transfusion Reaction / Comm: Morphine makes her nauseated. Had difficulty waking up in the s with anesthesia but no problems since. Past Psychological History: PTSD Smoking Status: Never smoker Past Alcohol Use History: Rare Past Drug Use History: None Reported - Past Family History Mother Family Medical History: Hyperlipidemia, Hypertension Father Family Medical History: Coronary Artery Disease (CAD), Hypertension, Osteoarthritis (OA) Medications and Allergies Home Medications Medication Instructions Recorded Confirmed Type Enalapril [Vasotec] 10 mg PO BID 10/21/17 11/17/19 History Multivitamins, Thera [Multivitamin 1 tab PO DAILY 10/21/17 11/17/19 History (formulary)] Calcium Gummy 2 tab PO DAILY 11/17/19 11/17/19 History Cholecalciferol [Vitamin D3 (25 2,000 unit PO DAILY 11/17/19 11/17/19 History Mcg = 1000 Iu)] Rosuvastatin Calcium [Crestor] 5 mg PO HS 11/17/19 11/17/19 History Hydrocodone/Acetaminophen [[place] 1 tab PO Q6HR PRN #10 tab 11/18/19 Rx 5-325] Allergies Allergy/AdvReac Type Severity Reaction Status Date / Time latex Allergy Rash/Hives Verified 11/17/19 20:58 nickel Allergy Rash/Hives Verified 11/17/19 20:58 morphine AdvReac Nausea & Verified 11/17/19 20:58 Vomiting quinine AdvReac depression Verified 11/17/19 20:58 Tetracyclines AdvReac Nausea & Verified 11/17/19 20:58 Vomiting Physical Exam Vitals: Vital Signs Temp Pulse Resp BP BP Pulse Ox 11/18/19 13:56 85 17 11/18/19 11:46 98.1 F 85 17 160/89 95 11/18/19 08:00 69 16 11/18/19 04:55 98.4 F 69 16 142/76 93 L 11/18/19 00:00 93 16 11/17/19 21:40 99.3 F 114 H 16 172/95 172/95 94 L Intake and Output 11/18/19 11/18/19 11/18/19 06:59 14:59 22:59 Intake Total 1100 Balance 1100 Intake: Intake, IV Titration 1100 Amount Piperacillin-Tazobactam 3 100 .375 gm In Sodium Chloride 0.9% 100 ml @ 25 mls/hr IVPB Q8HR [facility] Rx# :[id number] Sodium Chloride 0.9% 1, 1000 000 ml @ 125 mls/hr IV . Q8H [facility] Rx#:[id number] Other: # Voids 3 3 Results CBC & Chem 7: 11/18/19 05:47 11/18/19 05:47 Labs: Abnormal Lab Results - Last 24 Hours (Table) 11/18/19 11/18/19 Range/Units 05:47 05:47 MCHC 30.7 L (31.0-37.0) g/dL Glucose 109 H (74-99) mg/dL Total Protein 6.2 L (6.3-8.2) g/dL
[2019-11-18 20:25] LABS: Glucose,Whole Blood 156 mg/dL (75-99)
[2019-11-18] MEDS: ATORVASTATIN 10 MG TAB PO SCH (21:09)
[2019-11-19] MEDS: SODIUM CHLORIDE 0.9% 1,000 ML IV SCH ×4 (04:56→20:12)
[2019-11-19] MEDS ORDERED: HYDROmorphone 0.5 MG/0.5 ML SYRINGE IVP PRN (07:49)
[2019-11-19] MEDS ORDERED: LACTATED RINGERS 1,000 ML IV SCH (07:49)
[2019-11-19] MEDS: PANTOPRAZOLE 40 MG/10 ML VIAL IVP SCH (07:52)
[2019-11-19] MEDS: LISINOPRIL 10 MG TAB PO SCH ×2 (07:52→20:12)
[2019-11-19] MEDS: PIPERACILLIN-TAZOBACTAM 3.375 GM in SODIUM CHLORIDE 0.9% 100 ML IVPB SCH ×3 (07:52→23:18)
[2019-11-19] MEDS: HEPARIN SODIUM,PORCINE 5,000 UNIT/ML 1 ML VIAL SQ SCH ×3 (08:03→23:18)
[2019-11-19] MEDS ORDERED: BUPIVACAIN-EPI 0.25%-1:200,000 30 ML VIAL SQ ONE ×3 (08:17→08:39)
[2019-11-19] MEDS ORDERED: PHENYLEPHRINE-0.9% NACL SYG 1 MG/10 ML SYRINGE ONE (08:19)
[2019-11-19] MEDS ORDERED: SUCCINYLCHOLINE CHLORIDE 100 MG/5 ML SYR IV ONE (08:19)
[2019-11-19] MEDS ORDERED: MIDAZOLAM 2 MG/2 ML VIAL ONE (08:19)
[2019-11-19] MEDS ORDERED: LIDOCAINE 1% INJ 10MG/ML (20 ML MDV) ONE (08:19)
[2019-11-19] MEDS ORDERED: PROPOFOL 10 MG/ML 20 ML VIAL IV ONE (08:19)
[2019-11-19] MEDS ORDERED: ONDANSETRON 4 MG/2 ML VIAL ONE (08:19)
[2019-11-19] MEDS ORDERED: NEOSTIGMINE 1 MG/ML 10 ML VIAL ONE (08:19)
[2019-11-19] MEDS ORDERED: IV FLUID CONTINUATION 800 ML IV ONE (08:19)
[2019-11-19] MEDS ORDERED: HYDROmorphone (PF) 1 MG/ML ONE (08:19)
[2019-11-19] MEDS ORDERED: DEXAMETHASONE SOD PHOS (MDV) 100 MG/10 ML VIAL ONE (08:19)
[2019-11-19] MEDS ORDERED: HEPARIN SODIUM,PORCINE 5,000 UNIT/ML 1 ML VIAL ONE (08:19)
[2019-11-19] MEDS ORDERED: fentaNYL (PF) 50 MCG/ML 2 ML AMP ONE (08:19)
[2019-11-19] MEDS ORDERED: ROCURONIUM BROMIDE 10 MG/ML 5 ML VIAL IV ONE (08:19)
[2019-11-19] MEDS ORDERED: GLYCOPYRROLATE 0.2 MG/ML 2 ML VIAL ONE (08:19)
--- NOTE | 2019-11-19 10:02 | P.OP ---
Date of Procedure: 11/19/19 Procedure(s) Performed: PREOPERATIVE DIAGNOSIS: Acute cholecystitis POSTOPERATIVE DIAGNOSIS: Same PROCEDURE: Laparoscopic cholecystectomy SURGEON: Juana EBL: 25 mL ANESTHESIA: Gen. COMPLICATIONS: None OPERATIVE PROCEDURE: The patient was brought and placed on the operating room table in the supine position. The patient was placed under general anesthesia at that time. The abdomen was prepped and draped in the usual sterile fashion. A small curvilinear supraumbilical incision was made. The fascia was grasped with the Radha forceps. The fascia was retracted anteriorly. The Veress needle was advanced into the peritoneal cavity. The saline drop test was normal. Insufflation however quickly reached high pressure. The patient did have a infraumbilical scar and I decided to abort further attempts at that location. A 5 mm optical trocar was used to enter the peritoneal cavity in the right upper quadrant. That occurred without difficulty and full insufflation took place up to 15 mmHg. following that a 5 mm trocar was advanced into the umbilical site where there were some adhesions at and just below our incision. We were able to go at an angle and avoid the scar tissue there. An additional 5 mm trocar was placed in the lateral aspect of the right upper quadrant and a 12 mm trocar was advanced into the epigastric incision site. The gallbladder was significantly inflamed with what appeared represent chronic adhesions between the gallbladder and the pericolonic fat and omentum. Both blunt dissection and the LigaSure device were utilized to mobilize the gallbladder. It was very firm and difficult to manually maneuver. There appeared to either be porcelain gallbladder or a very large stone. As we were able to further retract superiorly and laterally we were able to identify the infundibulum. Blunt dissection did reveal narrowing of the infundibulum into the proximal cystic duct. The anticipated junction of the cystic duct with the common hepatic and common bile ducts was noted. The cystic duct was divided using a 2-0 Ethibond stitch tied down using a tie knot device. An additional clip was also placed on the patient's side. Cystic duct was divided. The adjacent cystic artery was then clipped. Another small vessel was clipped as well. The gallbladder was t hen removed from the liver bed using both electrocautery and the LigaSure device. Again it was densely adherent to the liver. Bleeding along the gallbladder bed was controlled using electrocautery. No further bleeding was seen. No bilious drainage was seen. I did decide to leave a drain given the degree of inflammatory changes. This is brought out through the lateral 5 mm trocar site and sutured in place using a 2-0 silk stitch. The gallbladder was then brought out through the epigastric trocar site after insufflation was evacuated using suction. This did require lengthening of both the fascia and the incision in order to remove the gallbladder. The gallbladder by palpation had a large stone within it. The fascia at the 12 millimeter site was closed using a running Marco-Blair 0 Vicryl stitch. The trochars were then removed. The skin at all 3 sites was closed using a 4-0 Monocryl stitch. Skin glue was utilized on the incision sites. At the end of this procedure the sp onge and needle counts were correct. DISPOSITION: Stable to the recovery room
[2019-11-19 10:10] LABS: Glucose,Whole Blood 151 mg/dL (75-99)
[2019-11-19] MEDS ORDERED: ACETAMINOPHEN TAB 325 MG TAB PO PRN (18:50)
[2019-11-19] MEDS: ONDANSETRON 4 MG/2 ML VIAL IVP PRN (19:29)
--- NOTE | 2019-11-19 19:59 | P.PN ---
Progress Note - Text Progress Note Date: 11/19/19 - Chief Complaint Abdominal pain Consultation: This is a very pleasant 69-year-old patient of Dr. White. Chronic stable medical conditions include asthma, diabetes, hypertension, osteoarthritis, on Thursday evening patient started of with right upper quadrant and right flank pain. No nausea vomiting. No fever no chills. Pain is also significant. Decided to come down to the ER. Ultrasound did show evidence of gallstones and some gallbladder wall thickening. Patient's felt of acute cholecystitis. Admitted for the same. Denies any chest pain or palpitations. Due to go down to the or initially later today than postponed till tomorrow morning because of scheduling. Admitted with-acute cholecystitis. Today-status post laparoscopic cholecystectomy. Gallbladder was not inflamed. Large gallstones present. Also adjoining adhesions were present. Patient has a abdominal drain. Postprocedure tired. Review of systems: Was done for constitutional, cardiovascular, GI, pulmonary. relevant finding as above Active Medications Acetaminophen (Tylenol Tab) 650 mg PO Q6HR PRN PRN Reason: Fever and/ or MILD Pain Last Admin: 11/19/19 19:04 Dose: 650 mg Documented by: Hydrocodone Bitart/Acetaminophen ([place] 5-325) 1 each PO Q4HR PRN PRN Reason: MODERATE Pain Last Admin: 11/19/19 15:49 Dose: 1 each Documented by: Atorvastatin Calcium (Lipitor) 10 mg PO HS [facility] Last Admin: 11/18/19 21:09 Dose: 10 mg Documented by: Heparin Sodium (Porcine) (Heparin) 5,000 unit SQ Q8HR [facility] Last Admin: 11/19/19 15:47 Dose: 5,000 unit Documented by: Hydromorphone HCl (Dilaudid) 1 mg IVP Q3HR PRN PRN Reason: SEVERE Pain Hydromorphone HCl (Dilaudid) 0.5 mg IVP Q5M PRN PRN Reason: Pain Control Stop: 11/20/19 07:50 Sodium Chloride (Saline 0.9%) 1,000 mls @ 125 mls/hr IV .Q8H [facility] Last Admin: 11/19/19 15:51 Dose: 125 mls/hr Documented by: Piperacillin Sod/Tazobactam (Sod 3.375 gm/ Sodium Chloride) 100 mls @ 25 mls/hr IVPB Q8HR [facility] Last Admin: 11/19/19 15:47 Dose: 25 mls/hr Documented by: Lactated Ringer's (Lactated Ringers) 1,000 mls @ 20 mls/hr IV .Q24H [facility] Last Admin: 11/19/19 11:28 Dose: Not Given Documented by: Lisinopril (Zestril) 10 mg PO BID [facility] Last Admin: 11/19/19 07:52 Dose: 10 mg Documented by: Naloxone HCl (Narcan) 0.2 mg IV Q2M PRN PRN Reason: Opioid Reversal Ondansetron HCl (Zofran) 4 mg IVP Q8HR PRN PRN Reason: Nausea And Vomiting Last Admin: 11/19/19 19:29 Dose: 4 mg Documented by: Pantoprazole Sodium (Protonix) 40 mg IVP DAILY [facility] Last Admin: 11/19/19 07:52 Dose: 40 mg Documented by: Physical examination: VITAL SIGNS: 97.6, 90, 18, 121/60, 33% on 2 L GENERAL: Laying in bed, tired EYES: Pupils equal. Conjunctiva normal. HEENT: External appearance of nose and ears normal, oral cavity grossly normal. NECK: JVD not raised; masses not palpable. HEART: First and second heart sounds are normal; no edema. LUNGS: Respiratory rate normal; clear to auscultation. ABDOMEN: Soft, abdominal tenderness present with a drain, no guarding or rigidity, liver spleen not palpable, no masses palpable. PSYCH: Alert and oriented x3; mood and affect normal. INVESTIGATIONS, reviewed in the clinical context: White count 6.1 hemoglobin 13.1 platelets 208 progression 4.2 creatinine 0.58 UA negative COVID-19 ECF-not detected Computed tomography scan of the abdomen-hepatomegaly, some sludge within the gallbladder. Stone in the left upper kidney nonobstructive, diverticulosis. Gallbladder ultrasound-enlarged liver, large stone gallbladder wall thickening Chest x-ray film-unremarkable Assessment: -Acute cholecystitis with choledocholithiasis,-status post cholecystectomy. Gallbladder was significantly inflamed with adjoining adhesions. -Possibly nonalcoholic fatty liver disease -Colonic diverticulosis, asymptomatic -Morbid obesity BMI 42.0 -Intermittent asthma -Diabetes mellitus type 2 -Essential hypertension -Primary osteoarthritis Plan: -Continue IV Zosyn. IV fluids. DVT prophylaxis. We'll follow. Thank you Dr. Arias
[2019-11-19] MEDS: ATORVASTATIN 10 MG TAB PO SCH (20:12)
[2019-11-20] MEDS: ONDANSETRON 4 MG/2 ML VIAL IVP PRN (02:29)
[2019-11-20 06:36] LABS: ALT 212 U/L (4-34); AST 239 U/L (14-36); African American GFR (CKD) >90 (>60 ml/min/1.73 sqM); Albumin 3.2 g/dL (3.5-5.0); Alkaline Phosphatase 92 U/L (38-126); Anion Gap 5 mmol/L; Blood Urea Nitrogen 10 mg/dL (7-17); Calcium 8.1 mg/dL (8.4-10.2); Carbon Dioxide 25 mmol/L (22-30); Chloride 108 mmol/L (98-107); Glucose 143 mg/dL (74-99); Non-African American GFR(CKD) >90 (>60 ml/min/1.73 sqM); Potassium 4.1 mmol/L (3.5-5.1); Sodium 138 mmol/L (137-145); Total Bilirubin 0.7 mg/dL (0.2-1.3); Total Protein 5.7 g/dL (6.3-8.2)
[2019-11-20 06:39] LABS: Basophils % (A) 0 %; Eosinophils % (A) 0 %; HCT 41.9 % (34.0-46.0); HGB 13.3 gm/dL (11.4-16.0); Lymphocytes # (A) 0.8 k/uL (1.0-4.8); Lymphocytes % (A) 7 %; MCH 28.5 pg (25.0-35.0); MCHC 31.7 g/dL (31.0-37.0); MCV 89.8 fL (80.0-100.0); Mean Platelet Volume 9.6; Monocytes # (A) 0.5 k/uL (0-1.0); Monocytes % (A) 5 %; Neutrophils # (A) 9.9 k/uL (1.3-7.7); Neutrophils % (A) 87 %; Platelet Count 215 k/uL (150-450); RBC 4.66 m/uL (3.80-5.40); RDW 13.4 % (11.5-15.5); WBC 11.4 k/uL (3.8-10.6)
[2019-11-20] MEDS: LISINOPRIL 10 MG TAB PO SCH ×2 (08:51→20:26)
[2019-11-20] MEDS: PIPERACILLIN-TAZOBACTAM 3.375 GM in SODIUM CHLORIDE 0.9% 100 ML IVPB SCH ×3 (08:51→23:40)
[2019-11-20] MEDS: PANTOPRAZOLE 40 MG/10 ML VIAL IVP SCH (08:51)
[2019-11-20] MEDS: HEPARIN SODIUM,PORCINE 5,000 UNIT/ML 1 ML VIAL SQ SCH ×3 (08:51→23:39)
--- NOTE | 2019-11-20 10:27 | P.PN ---
Subjective Progress Note Date: 11/20/19 CHIEF COMPLAINT: Acute cholecystitis HISTORY OF PRESENT ILLNESS: The patient is a 69-year-old female status post cholecystectomy 11/19/2019. She is postop day 1. She reports vomiting yesterday with her meal. She feels better today. ROS: Reports of nausea and vomiting. No fevers or chills. No new chest pain. PHYSICAL EXAM: VITAL SIGNS: Reviewed CONSTITUTIONAL: Well developed and in no acute distress. EYES: Conjuctivae without sclera icterus. Extraocular movements grossly intact. HEAD, EARS, NOSE, THROAT: Moist buccal mucosa. Head is atraumatic, normocephalic. Hears conversational speech. No nasal drainage. NECK: Supple. No thyroidomegaly. Severe thick neck. No erythema along trach site. RESPIRATORY: Non-labored respirations and equal bilateral excursions. On mechanical ventilation. CARDIOVASCULAR: Palpable 2+ radial pulses. ABDOMEN: Incisions clean, dry and intact. JOE serosanguinous. MUSCULOSKELETAL: No gross deformity of the lower extremities noted. No clubbing. No cyanosis. SKIN: Good skin turgor. Well perfused. PEG and trach site intact NEUROLOGIC: Cranial nerves II through XII grossly intact. No focal or lateralizing signs. PSYCH: Appropriate affect. Alert and oriented to person, place and time. CLINICAL LABS: White blood cell count elevated 11,400. LFTs elevated from 13 to 17 to 217 to 239. ASSESSMENT: 1. Acute cholecystitis PLAN: 1. Continue antibiotics for acute cholecystitis 2. Recommend continued hospitalization with leukocytosis and elevated LFTs 3. Repeat CBC and CMP Objective - Vital Signs Vital signs: Vital Signs Temp 98.6 F 11/20/19 04:48 Pulse 88 11/20/19 04:48 Resp 16 11/20/19 04:48 BP 133/71 11/20/19 04:48 Pulse Ox 97 11/20/19 04:48 Intake & Output 11/19/19 11/20/19 11/20/19 18:59 06:59 18:59 Intake Total 700 Output Total 115 50 Balance 585 -50 Intake: IV 700 Output: Drainage 90 50 Abdomen 90 50 Estimated Blood Loss 25 Other: Voiding Method Toilet Toilet Toilet # Voids 1 2 - Labs CBC & Chem 7: 11/20/19 05:32 11/20/19 05:32 Labs: Abnormal Lab Results - Last 24 Hours (Table) 11/20/19 11/20/19 Range/Units 05:32 05:32 WBC 11.4 H (3.8-10.6) k/uL Neutrophils # 9.9 H (1.3-7.7) k/uL Lymphocytes # 0.8 L (1.0-4.8) k/uL Chloride 108 H (98-107) mmol/L Glucose 143 H (74-99) mg/dL Calcium 8.1 L (8.4-10.2) mg/dL AST 239 H (14-36) U/L ALT 212 H (4-34) U/L Total Protein 5.7 L (6.3-8.2) g/dL Albumin 3.2 L (3.5-5.0) g/dL Assessment and Plan (1) Acute cholecystitis Current Visit: Yes Status: Acute Code(s): K81.0 - ACUTE CHOLECYSTITIS SNOMED Code(s): 34829907 (2) Biliary colic Current Visit: Yes Status: Acute Code(s): K80.50 - CALCULUS OF BILE DUCT W/O CHOLANGITIS OR CHOLECYST W/O OBST SNOMED Code(s): 50769369
[2019-11-20] MEDS: SODIUM CHLORIDE 0.9% 1,000 ML IV SCH ×2 (11:20→13:00)
--- NOTE | 2019-11-20 17:41 | P.PN ---
Progress Note - Text Progress Note Date: 11/20/19 - Chief Complaint Abdominal pain Consultation: This is a very pleasant 69-year-old patient of Dr. White. Chronic stable medical conditions include asthma, diabetes, hypertension, osteoarthritis, on Thursday evening patient started of with right upper quadrant and right flank pain. No nausea vomiting. No fever no chills. Pain is also significant. Decided to come down to the ER. Ultrasound did show evidence of gallstones and some gallbladder wall thickening. Patient's felt of acute cholecystitis. Admitted for the same. Denies any chest pain or palpitations. Due to go down to the or initially later today than postponed till tomorrow morning because of scheduling. Admitted with-acute cholecystitis.laparoscopic cholecystectomy-Gallbladder was inflamed. Large gallstones present. Today-feeling better. Some rumbling in her stomach. Has not passed flatus. About 50-60 mL and a JOE drain every shift. On a low fat diet per surgery Review of systems: Was done for constitutional, cardiovascular, GI, pulmonary. relevant finding as above Active Medications Acetaminophen (Tylenol Tab) 650 mg PO Q6HR PRN PRN Reason: Fever and/ or MILD Pain Last Admin: 11/19/19 19:04 Dose: 650 mg Documented by: Hydrocodone Bitart/Acetaminophen ([place] 5-325) 1 each PO Q4HR PRN PRN Reason: MODERATE Pain Last Admin: 11/19/19 15:49 Dose: 1 each Documented by: Atorvastatin Calcium (Lipitor) 10 mg PO HS [facility] Last Admin: 11/19/19 20:12 Dose: 10 mg Documented by: Heparin Sodium (Porcine) (Heparin) 5,000 unit SQ Q8HR [facility] Last Admin: 11/20/19 16:07 Dose: 5,000 unit Documented by: Hydromorphone HCl (Dilaudid) 1 mg IVP Q3HR PRN PRN Reason: SEVERE Pain Sodium Chloride (Saline 0.9%) 1,000 mls @ 125 mls/hr IV .Q8H [facility] Last Admin: 11/20/19 13:00 Dose: Not Given Documented by: Piperacillin Sod/Tazobactam (Sod 3.375 gm/ Sodium Chloride) 100 mls @ 25 mls/hr IVPB Q8HR [facility] Last Admin: 11/20/19 16:06 Dose: 25 mls/hr Documented by: Lisinopril (Zestril) 10 mg PO BID [facility] Last Admin: 11/20/19 08:51 Dose: 10 mg Documented by: Naloxone HCl (Narcan) 0.2 mg IV Q2M PRN PRN Reason: Opioid Reversal Ondansetron HCl (Zofran) 4 mg IVP Q8HR PRN PRN Reason: Nausea And Vomiting Last Admin: 11/20/19 02:29 Dose: 4 mg Documented by: Pantoprazole Sodium (Protonix) 40 mg IVP DAILY [facility] Last Admin: 11/20/19 08:51 Dose: 40 mg Documented by: Physical examination: VITAL SIGNS: 98.6, 93, 16, 150/80, 97% on 2 L GENERAL: Propped up, more comfortable EYES: Pupils equal. Conjunctiva normal. HEENT: External appearance of nose and ears normal, oral cavity grossly normal. NECK: JVD not raised; masses not palpable. HEART: First and second heart sounds are normal; no edema. LUNGS: Respiratory rate normal; clear to auscultation. ABDOMEN: Soft, some tenderness, JOE drain, no guarding or rigidity, liver spleen not palpable, no masses palpable. PSYCH: Alert and oriented x3; mood and affect normal. INVESTIGATIONS, reviewed in the clinical context: White count 11.4 hemoglobin 13.3 potassium 4.1 creatinine 0.58 AST 239 ALT 212 total bilirubin 0.7 Previous testing White count 6.1 hemoglobin 13.1 platelets 208 progression 4.2 creatinine 0.58 UA negative COVID-19 ECF-not detected Computed tomography scan of the abdomen-hepatomegaly, some sludge within the gallbladder. Stone in the left upper kidney nonobstructive, diverticulosis. Gallbladder ultrasound-enlarged liver, large stone gallbladder wall thickening Chest x-ray film-unremarkable Assessment: -Acute cholecystitis with choledocholithiasis,-status post cholecystectomy. Gallbladder was significantly inflamed with adjoining adhesions. -Postop acute rise in liver enzymes-follow closely -Possibly nonalcoholic fatty liver disease -Colonic diverticulosis, asymptomatic -Morbid obesity BMI 42.0 -Intermittent asthma -Diabetes mellitus type 2 -Essential hypertension -Primary osteoarthritis Plan: -Continue IV Zosyn. IV fluids. Repeat CMP in the morning. Decrease IV fluids Thank you Dr. Arias
[2019-11-20] MEDS: ATORVASTATIN 10 MG TAB PO SCH (20:26)
[2019-11-20] MEDS: LACTATED RINGERS 1,000 ML IV SCH (20:27)
[2019-11-20 22:14] VITALS: RESP 18
[2019-11-21 04:27] VITALS: BP 169/87; PULSE 84; TEMP 98
[2019-11-21 07:19] LABS: Basophils % (A) 0 %; Eosinophils # (A) 0.2 k/uL (0-0.7); Eosinophils % (A) 3 %; HCT 37.9 % (34.0-46.0); HGB 12.4 gm/dL (11.4-16.0); Hypochromasia Slight; Lymphocytes # (A) 1.8 k/uL (1.0-4.8); Lymphocytes % (A) 22 %; MCH 29.7 pg (25.0-35.0); MCHC 32.8 g/dL (31.0-37.0); MCV 90.6 fL (80.0-100.0); Mean Platelet Volume 9.4; Monocytes # (A) 0.4 k/uL (0-1.0); Monocytes % (A) 5 %; Neutrophils # (A) 5.6 k/uL (1.3-7.7); Neutrophils % (A) 69 %; Platelet Count 196 k/uL (150-450); RBC 4.18 m/uL (3.80-5.40); RDW 13.9 % (11.5-15.5); WBC 8.1 k/uL (3.8-10.6)
[2019-11-21 07:30] LABS: ALT 184 U/L (4-34); AST 95 U/L (14-36); African American GFR (CKD) >90 (>60 ml/min/1.73 sqM); Albumin 3.1 g/dL (3.5-5.0); Alkaline Phosphatase 80 U/L (38-126); Anion Gap 4 mmol/L; Blood Urea Nitrogen 10 mg/dL (7-17); Carbon Dioxide 28 mmol/L (22-30); Chloride 108 mmol/L (98-107); Glucose 113 mg/dL (74-99); Non-African American GFR(CKD) >90 (>60 ml/min/1.73 sqM); Sodium 140 mmol/L (137-145); Total Bilirubin 0.3 mg/dL (0.2-1.3); Total Protein 5.6 g/dL (6.3-8.2)
[2019-11-21] MEDS: PIPERACILLIN-TAZOBACTAM 3.375 GM in SODIUM CHLORIDE 0.9% 100 ML IVPB SCH (07:54)
[2019-11-21] MEDS: LISINOPRIL 10 MG TAB PO SCH (07:55)
[2019-11-21] MEDS: HEPARIN SODIUM,PORCINE 5,000 UNIT/ML 1 ML VIAL SQ SCH (07:55)
[2019-11-21] MEDS: PANTOPRAZOLE 40 MG/10 ML VIAL IVP SCH (07:55)
[2019-11-21] MEDS: LACTATED RINGERS 1,000 ML IV SCH (07:56)
--- NOTE | 2019-11-21 09:36 | P.DS ---
Providers Date of admission: 11/20/19 08:37 Expected date of discharge: 11/21/19 Attending physician: Philip Arias Consults: 11/17/19 20:58 Consult Physician Routine Consulting Provider: Hernán Rae Consult Reason/Comments: Medical clearance Do you want consulting provider notified?: Already Contacted Primary care physician: Parvez Riosqvi Hospital Course: 69-year-old female who presented to emergency room with a chief complaint of abdominal pain. patient was found to have acute cholecystitis. she underwent laparoscopic cholecystectomy with Dr. Arias. patient is doing well postoperatively without any immediate complications. She is tolerating diet without nausea or vomiting. Pain is controlled on oral medications. Vital signs are stable. W BC within normal limits. She is stable for discharge home today. JOE drain to be removed prior to discharge. Please see EMR for further hospital course details. Discharge Diagnosis: 1. Abdominal pain 2. Acute cholecystitis Nurse practitioner note has been reviewed by physician. Signing provider agrees with the documented findings, assessment, and plan of care. Patient Condition at Discharge: Stable Plan - Discharge Summary New Discharge Prescriptions: New Hydrocodone/Acetaminophen [[place] 5-325] 1 tab PO Q6HR PRN #10 tab PRN Reason: Pain No Action Enalapril [Vasotec] 10 mg PO BID Multivitamins, Thera [Multivitamin (formulary)] 1 tab PO DAILY Rosuvastatin Calcium [Crestor] 5 mg PO HS Cholecalciferol [Vitamin D3 (25 Mcg = 1000 Iu)] 2,000 unit PO DAILY Calcium Gummy 2 tab PO DAILY Discharge Medication List Enalapril [Vasotec] 10 mg PO BID 10/21/17 [History] Multivitamins, Thera [Multivitamin (formulary)] 1 tab PO DAILY 10/21/17 [History] Calcium Gummy 2 tab PO DAILY 11/17/19 [History] Cholecalciferol [Vitamin D3 (25 Mcg = 1000 Iu)] 2,000 unit PO DAILY 11/17/19 [History] Rosuvastatin Calcium [Crestor] 5 mg PO HS 11/17/19 [History] Hydrocodone/Acetaminophen [[place] 5-325] 1 tab PO Q6HR PRN #10 tab 11/18/19 [Rx] Follow up Appointment(s)/Referral(s): Philip Arias MD [Medical Doctor] - 1 Week Parvez White MD [Primary Care Provider] - 1-2 days Activity/Diet/Wound Care/Special Instructions: prescription for Bath in patient's paper chart No driving while taking Bath No lifting over 10 pounds You may shower. No soaking or tub baths Very light activity until you are reevaluated at your follow up appointment with your surgeon
--- NOTE | 2019-11-21 20:19 | P.PN ---
Progress Note - Text Progress Note Date: 11/21/19 - Chief Complaint Abdominal pain Consultation: This is a very pleasant 69-year-old patient of Dr. White. Chronic stable medical conditions include asthma, diabetes, hypertension, osteoarthritis, on Thursday evening patient started of with right upper quadrant and right flank pain. No nausea vomiting. No fever no chills. Pain is also significant. Decided to come down to the ER. Ultrasound did show evidence of gallstones and some gallbladder wall thickening. Patient's felt of acute cholecystitis. Admitted for the same. Denies any chest pain or palpitations. Due to go down to the or initially later today than postponed till tomorrow morning because of scheduling. Admitted with-acute cholecystitis.laparoscopic cholecystectomy-Gallbladder was inflamed. Large gallstones present. Today-feeling well. JOE drain was removed this morning by surgery. Did tolerate her diet. Positive flatus. Feeling well. Review of systems: Was done for constitutional, cardiovascular, GI, pulmonary. relevant finding as above Current medications reviewed in today's electronic records Physical examination: VITAL SIGNS: 98, 84, 18, 169/87, 96% room air GENERAL: Sitting up, comfortable EYES: Pupils equal. Conjunctiva normal. HEENT: External appearance of nose and ears normal, oral cavity grossly normal. NECK: JVD not raised; masses not palpable. HEART: First and second heart sounds are normal; no edema. LUNGS: Respiratory rate normal; clear to auscultation. ABDOMEN: Soft, minimal tenderness, no guarding or rigidity, liver spleen not palpable, no masses palpable. -JOE drain discontinued PSYCH: Alert and oriented x3; mood and affect normal. INVESTIGATIONS, reviewed in the clinical context: White count 8.1 hemoglobin 12.4 potassium 4 creatinine 0.5 times AST 95 ALT 184 total bilirubin 0.3 Previous testing White count 6.1 hemoglobin 13.1 platelets 208 progression 4.2 creatinine 0.58 UA negative COVID-19 ECF-not detected Computed tomography scan of the abdomen-hepatomegaly, some sludge within the gallbladder. Stone in the left upper kidney nonobstructive, diverticulosis. Gallbladder ultrasound-enlarged liver, large stone gallbladder wall thickening Chest x-ray film-unremarkable Assessment: -Acute cholecystitis with choledocholithiasis,-status post cholecystectomy. Gallbladder was significantly inflamed with adjoining adhesions. -Postop acute rise in liver enzymes-coming down -Possibly nonalcoholic fatty liver disease -Colonic diverticulosis, asymptomatic -Morbid obesity BMI 42.0 -Intermittent asthma -Diabetes mellitus type 2 -Essential hypertension -Primary osteoarthritis Plan: -Continue current medication. Add Augmentin for a week-Follow with PCP. Thank you Dr. Arias
== END 2019-11-21 12:49 | disposition home or self-care (01) | DRG 418 ==
LOC: EC 15:35 → 5NMEDONC 20:54 → OBSVTOIN 11-20 08:37
PROVIDERS: ADMIT Surgery; ATTEND Surgery
PROC: 0FT44ZZ Resection of Gallbladder, Percutaneous Endoscopic Approach (ICD-10-PCS; principal; 2019-11-19 08:00)
DX: K80.62 Calculus of gallbladder and bile duct with acute cholecystitis without obstruction (principal); Z68.41 Body mass index [BMI] 40.0-44.9, adult; K75.81 Nonalcoholic steatohepatitis (NASH); E11.9 Type 2 diabetes mellitus without complications; E66.01 Morbid (severe) obesity due to excess calories; F43.10 Post-traumatic stress disorder, unspecified; I10 Essential (primary) hypertension; J45.20 Mild intermittent asthma, uncomplicated; K57.30 Diverticulosis of large intestine without perforation or abscess without bleeding; M19.91 Primary osteoarthritis, unspecified site; E07.9 Disorder of thyroid, unspecified; K58.9 Irritable bowel syndrome, unspecified; Z11.59 Encounter for screening for other viral diseases; Z79.82 Long term (current) use of aspirin; Z79.84 Long term (current) use of oral hypoglycemic drugs; Z79.899 Other long term (current) drug therapy; Z87.01 Personal history of pneumonia (recurrent); Z91.040 Latex allergy status; Z88.5 Allergy status to narcotic agent; Z91.048 Other nonmedicinal substance allergy status; Z90.710 Acquired absence of both cervix and uterus; Z96.653 Presence of artificial knee joint, bilateral; Z82.49 Family history of ischemic heart disease and other diseases of the circulatory system; Z82.61 Family history of arthritis
CPT/HCPCS: 36415; 71046; 74018; 74176; 76705; 80053; 81003; 82150; 82550; 83690; 83735; 84484; 85025; 87635; 88304; 96365; 99285

== ENCOUNTER → 2020-07-13 | Outpatient (CLI) | payer MEDICARE ==
--- NOTE | 2020-07-13 15:34 | US ---
EXAMINATION TYPE: US thyroid st tissue head/neck DATE OF EXAM: 07/13/2020 COMPARISON: US CLINICAL HISTORY: E11.9 Type 2 diabetes mellitus, Follow up GLAND SIZE: Right Lobe: 4.9 x 1.5 x 1.2 cm Overall Parenchyma: heterogenous Left Lobe: 4.7 x 1.8 x 1.8 cm Overall Parenchyma: heterogeneous Isthmus Thickness: 0.1 cm NODULES RIGHT: # of nodules measured on right: 1 1. 1.1 X 0.8 x 0.9 cm solid or almost completely solid, isoechoic nodule, which is wider than tall, with smooth margins, without echogenic foci. Prior size: 1.1 x 0.8 x 0.9 cm LEFT: # of nodules measured on left: 1 1. 2.4 X 1.7 x 1.7 cm spongiform, hypoechoic nodule, which is wider than tall, with smooth margins , without echogenic foci. Prior size: 2.4 x 1.9 x 1.4 cm ISTHMUS: # of nodules measured in the isthmus: 0 Bilateral neck scanned, no evidence of lymphadenopathy. IMPRESSION: Mildly suspicious nodule within the right lobe thyroid. Follow-up monitoring exam can be performed. 2017 ACR TI-RADS LEVEL: 3 *Highest TI-RADS level nodule reported
[2020-07-13 15:50] LABS: ALT 24 U/L (4-34); AST 23 U/L (14-36); African American GFR (CKD) >90 (>60 ml/min/1.73 sqM); Albumin 4.3 g/dL (3.5-5.0); Alkaline Phosphatase 70 U/L (38-126); Anion Gap 5 mmol/L; Blood Urea Nitrogen 16 mg/dL (7-17); Calcium 9.7 mg/dL (8.4-10.2); Carbon Dioxide 32 mmol/L (22-30); Chloride 105 mmol/L (98-107); Glucose 86 mg/dL (74-99); Non-African American GFR(CKD) >90 (>60 ml/min/1.73 sqM); Potassium 4.6 mmol/L (3.5-5.1); Sodium 142 mmol/L (137-145); Total Bilirubin 0.4 mg/dL (0.2-1.3); Total Protein 7.2 g/dL (6.3-8.2)
[2020-07-13 16:36] LABS: Cholesterol 142 mg/dL (<200); HDL Cholesterol 67 mg/dL (40-60); LDL Cholesterol,Calculated 42 mg/dL (0-99); Triglycerides 165 mg/dL (<150)
[2020-07-13 22:22] LABS: Urine Creatinine 152.7 mg/dL
== END | disposition home or self-care (01) ==
LOC: RADUSWWP 14:29
PROVIDERS: ATTEND Internal Medicine Endocrinology, Diabetes & Metabolism
DX: E04.2 Nontoxic multinodular goiter (principal); E11.9 Type 2 diabetes mellitus without complications; E55.9 Vitamin D deficiency, unspecified
CPT/HCPCS: 36415; 76536; 80053; 80061; 82043; 82306; 82570; 83036; 84443

== ENCOUNTER → 2021-02-22 | Outpatient (CLI) | payer MEDICARE ==
--- NOTE | 2021-02-25 10:52 | MM ---
Reason for exam: screening (asymptomatic). Last mammogram was performed 2 years and 8 months ago. History: Patient is postmenopausal. Family history of breast cancer in sister at age 65. 2 benign excisional biopsies of the left breast. Took hormonal contraceptives for 3 years. Took estrogen for 3 years. Physical Findings: A clinical breast exam by your physician is recommended on an annual basis and results should be correlated with mammographic findings. MG 3D Screening Mammo W/Cad Bilateral CC and MLO view(s) were taken. Prior study comparison: June 11, 2018, bilateral MG 3d screening mammo w/cad. June 10, 2017, bilateral MG 3d screening mammo w/cad. There are scattered fibroglandular densities. There is no discrete abnormality. No significant changes when compared with prior studies. ASSESSMENT: Benign, BI-RAD 2 RECOMMENDATION: Routine screening mammogram of both breasts in 1 year.
== END | disposition home or self-care (01) ==
LOC: RADMAMWWP 10:14
PROVIDERS: ATTEND Family Medicine
DX: Z12.31 Encounter for screening mammogram for malignant neoplasm of breast (principal)
CPT/HCPCS: 77063; 77067

== ENCOUNTER → 2021-08-26 | Outpatient (CLI) | payer MEDICARE ==
--- NOTE | 2021-08-26 15:57 | US ---
EXAMINATION TYPE: US thyroid st tissue head/neck DATE OF EXAM: 08/26/2021 COMPARISON: NONE CLINICAL HISTORY: E04.2 NONTOXIC MULTINODULAR GOITER. Multinodular follow up. GLAND SIZE: Right Lobe: 4.2 x 1.4 x 1.3 cm Overall Parenchyma: heterogenous Left Lobe: 5.8 x 1.6 x 1.9 cm Overall Parenchyma: heterogeneous Isthmus Thickness: 0.3 cm NODULES RIGHT: # of nodules measured on right: 3 1. 1.0 X 0.8 x 0.8 cm, lower lateral, solid or almost completely solid, hypoechoic nodule, which is wider than tall, with lobulated or irregular margins, without echogenic foci. Prior size: 1.1 x 0.9 x 0.8 cm 2. 0.4 X 0.4 x 0.3 cm, upper lateral, cystic or almost completely cystic, anechoic nodule, which is wider than tall, with smooth margins, with echogenic foci. 3. 0.4 X 0.3 x 0.3 cm, mid mid, solid or almost completely solid, hypoechoic nodule, which is wider than tall, with lobulated or irregular margins, without echogenic foci. LEFT: # of nodules measured on left: 3 1. 2.6 X 1.4 x 1.6 cm, lower mid, mixed cystic and solid, hypoechoic nodule, which is wider than ta ll, with lobulated or irregular margins, without echogenic foci. TR 3 Prior size: 2.4 x 1.9 x 1.4 cm 2. 0.4 X 0.4 x 0.2 cm, upper mid, solid or almost completely solid, hypoechoic nodule, which is wi chris than tall, with ill-defined margins, without echogenic foci. 3. 0.4 X 0.3 x 0.5 cm, upper mid, solid or almost completely solid, hypoechoic nodule, which is wid er than tall, with lobulated or irregular margins, without echogenic foci. ISTHMUS: # of nodules measured in the isthmus: 0 Bilateral neck scanned, no evidence of lymphadenopathy. Multiple nodules seen bilateral. IMPRESSION: 1. Mildly suspicious nodule inferior pole left lobe thyroid. Biopsy is recommended at this is not bee n previously performed. 2017 ACR TI-RADS LEVEL: TR-RADS 3 - Mildly Suspicious: Follow if > 1.5 cm, FNA if > 2.5 cm *Highest TI-RADS level nodule reported
== END ==
LOC: RADUSWWP 09:49
PROVIDERS: ATTEND Internal Medicine Endocrinology, Diabetes & Metabolism
DX: E04.2 Nontoxic multinodular goiter (principal)
CPT/HCPCS: 76536

== ENCOUNTER → 2022-04-04 | Outpatient (CLI) | payer MEDICARE | END | disposition home or self-care (01) | LOC: RADMAMWWP 07:41 | PROVIDERS: ATTEND Family Medicine | DX: Z12.31 Encounter for screening mammogram for malignant neoplasm of breast (principal) | CPT/HCPCS: 77063; 77067 ==

== ENCOUNTER → 2022-04-04 | Outpatient (CLI) | payer MEDICARE ==
--- NOTE | 2022-04-04 09:15 | US ---
EXAMINATION TYPE: US thyroid st tissue head/neck DATE OF EXAM: 04/04/2022 COMPARISON: 08/26/2021, 06/01/2019, 03/01/2018 CLINICAL HISTORY: E04.1 SINGLE THYROID NODULE. GLAND SIZE: Right Lobe: 4.2 x 1.3 x 1.3 cm Overall Parenchyma: heterogenous Left Lobe: 4.5 x 1.8 x 1.7 cm Overall Parenchyma: heterogeneous Isthmus Thickness: 0.3 cm NODULES RIGHT: # of nodules measured on right: Multiple subcentimeter nodules. All nodules over 5mm are me asured 1. 0.7 X 0.5 x 0.6 cm, lower mid, solid or almost completely solid, hypoechoic nodule, which is mayo ler than wide, with smooth margins, without echogenic foci. Prior size: 1.0 x 0.8 x 0.8 cm LEFT: # of nodules measured on left: Multiple subcentimeter nodules. Nodules over 5mm are measur ed 1. 2.4 X 1.5 x 1.9 cm, lower mid, solid or almost completely solid, hypoechoic nodule, which is mayo ler than wide, with smooth margins, with echogenic foci. Prior size: 2.6 x 1.6 x 1.4 cm ISTHMUS: # of nodules measured in the isthmus: 0 Bilateral neck scanned: Right neck inferior to thyroid , an echogenic mass is present 0.6 x 0.5 x 0.6cm. Left neck inferior to thyroid, an echogenic mass is present 0.4 x 0.6 x 0.6cm IMPRESSION: 1. Stable nonspecific thyroid nodularity. 2. Echogenic lesions bilateral neck could reflect parathyroid adenomas. Correlate clinically.
== END | disposition home or self-care (01) ==
LOC: RADUSWWP 07:43
PROVIDERS: ATTEND Internal Medicine Endocrinology, Diabetes & Metabolism
DX: E04.1 Nontoxic single thyroid nodule (principal)
CPT/HCPCS: 76536

== ENCOUNTER → 2022-04-08 | Outpatient (CLI) | payer MEDICARE ==
--- NOTE | 2022-04-08 11:23 | MM ---
Reason for Exam: Additional evaluation requested from abnormal screening. Last screening mammogram was performed less than 1 month ago. Patient History: Menarche at age 14. First Full-Term at age 30. Left ovary removed at age 47. Right ovary removed at age 47. Hysterectomy at age 47. Postmenopausal. Patient used Estrogen for 3 years. Patient used Hormonal Contraceptives for 3 years. 1980, Incisional Biopsy on the Left side. Benign Excisional Biopsy on the left side. Benign Excisional Biopsy on the left side. Sister had breast cancer, age 65. Risk Values: [place] 5 year model risk: 4.0%. NCI Lifetime model risk: 11.4%. Tissue Density: Right: The breast tissue is heterogeneously dense. This may lower the sensitivity of mammography. Findings: Analyzed By CAD. Roughly 9 mm asymmetry in the middle depth centrally roughly 5 cm distance from nipple does not go away on additional views. Overall Assessment: Incomplete: need additional imaging evaluation, BI-RAD 0 Management: Diagnostic Breast Ultrasound of the right breast. Targeted ultrasound now. Electronically signed and approved by: Shubham Huddleston M.D.
--- NOTE | 2022-04-08 12:00 | USB ---
Reason for Exam: Additional evaluation requested from abnormal screening. Patient History: Menarche at age 14. First Full-Term at age 30. Left ovary removed at age 47. Right ovary removed at age 47. Hysterectomy at age 47. Postmenopausal. Patient used Estrogen for 3 years. Patient used Hormonal Contraceptives for 3 years. 1980, Incisional Biopsy on the Left side. Benign Excisional Biopsy on the left side. Benign Excisional Biopsy on the left side. Sister had breast cancer, age 65. Risk Values: [place] 5 year model risk: 4.0%. NCI Lifetime model risk: 11.4%. Technique: Method: Targeted. Patient Position: Supine. Prior Study Comparison: 06/11/2018 Bilateral Screening Mammogram, [facility]. 02/22/2021 Bilateral Screening Mammogram, [facility]. 04/04/2022 Bilateral MG 3D screening mammo w/cad, [facility]. Findings: The upper inner quadrant of the right breast, the axilla of the right breast and the retroareolar of the right breast were scanned. Targeted ultrasound shows 9 x 5 x 9 mm oval circumscribed mass with parallel orientation that is hypoechoic to anechoic in appearance with increased through transmission and no vascularity deep 2:00 position 5 cm distance from nipple which likely corresponds to area of concern on mammogram. Overall Assessment: Probably benign, BI-RAD 3 Management: Diagnostic Breast Ultrasound of the right breast in 6 months. Diagnostic Mammogram of the right breast in 6 months. No convincing evidence for malignancy. Precautionary short-term follow-up . Patient told the findings and recommendation at time of dictation. Electronically signed and approved by: Shubham Huddleston M.D.
== END | disposition home or self-care (01) ==
LOC: RADMAMWWP 10:50
PROVIDERS: ATTEND Family Medicine
DX: R92.8 Other abnormal and inconclusive findings on diagnostic imaging of breast (principal)
CPT/HCPCS: 77065; 76642; G0279; 77061

== ENCOUNTER → 2023-10-15 | Outpatient (CLI) | payer MEDICARE ==
--- NOTE | 2023-10-15 13:13 | US ---
EXAMINATION TYPE: US thyroid st tissue head/neck DATE OF EXAM: 10/15/2023 COMPARISON: US CLINICAL INDICATION: Female, 73 years old with history of E04.1 THYROID NODULE; F/U GLAND SIZE: Right Lobe: 4.3 x 1.3 x 1.4 cm Overall Parenchyma: homogeneous Left Lobe: 4.1 x 1.6 x 1.6 cm Overall Parenchyma: homogeneous Isthmus Thickness: 0.2 cm NODULES RIGHT: # of nodules measured on right: 1 1. 0.97 X 0.8 x 0.8 cm, lower, solid, isoechoic nodule, which is wider than tall, with ill-defined margins, without echogenic foci.TR3 Mildly Suspicious: FNA if ? 2.5 cm; Follow if ? 1.5 cm at 1, 3, a nd 5 y Prior size: 0.7 x 0.5 x 0.6 cm LEFT: # of nodules measured on left: 1 1. 2.3 X 1.7 x 2.0 cm, lower, solid or almost completely solid, hypoechoic nodule, which is wider t edmonds tall, with ill-defined margins, with echogenic foci.TR4 Prior size: 2.4 x 1.5 x 1.9 cm ISTHMUS: # of nodules measured in the isthmus: 0 Bilateral neck scanned, no evidence of lymphadenopathy. Essentially stable nodules bilaterally, no ev idence of parathyroid nodules. IMPRESSION: Moderately Suspicious: FNA if ? 1.5 cm; Follow if ? 1 cm at 1, 2, 3, and 5 y 2017 ACR TI-RADS LEVEL: TR4 *Highest TI-RADS level nodule reported
--- NOTE | 2023-10-15 13:31 | BD ---
EXAMINATION TYPE: Axial Bone Density DATE OF EXAM: 10/15/2023 CLINICAL HISTORY: 73 years old Female. ICD-10 CODE: M81.0 AGE-RELATED OSTEOPOROSIS W/O CURRENT PATHO LO Height: 66 Weight: 269.3 FRAX RISK QUESTIONS: Alcohol (3 or more units per day): no Family History (Parent hip fracture): yes Glucocorticoids (More than 3mos): no (Ex: prednisone, prednisolone, methylprednisolone, dexamethasone, and hydrocortisone). History of Fracture in Adulthood: yes Secondary Osteoporosis: 1. Type 1 Diabetes: no 2. Hyperthyroidism: no 3. Menopause before 45: no 4. Malnutrition: no 5. Chronic liver disease: no Rheumatoid Arthritis: no Current Tobacco Use: no RISK FACTORS HISTORY OF: History of Wrist Fracture: left wrist Surgery to Spine/Hip(right/left)/Wrist (right/left): right hip When: 2018 EXAM MEASUREMENTS: Bone mineral densitometry was performed using the [employer] System. Bone mineral density as measured about the Lumbar spine is: ----- L1-L4(G/cm2): 1.282 T Score Values are as follows: ----- L1: -0.9 ----- L2: 1.1 ----- L3: 1.3 ----- L4: 1.4 ----- L1-L4: 0.9 Z Score Values are as follows: ----- L1: -0.3 ----- L2: 1.6 ----- L3: 1.9 ----- L4: 2.0 ----- L1-L4: 1.4 Bone mineral density has: decreased -2.5 % since study of: 2017 Bone mineral density about the L hip (g/cm2): 0.916 T Score values are as follows: -----L Neck: -1.7 -----L Total: -0.7 Z Score values are as follows: -----L Neck: -0.7 -----L Total: 0.0 Bone mineral density has: decreased -11.1 % since study of: 2017 FRAX%s: The graph provided illustrates a 22.7% chance for a major osteoporotic fx and a 6.2 % chance for the hips probability for fx in 10 years time. IMPRESSION: Normal (Values between +1 and -1 indicate normal bone mass). Consider repeating this study in 5 year s or sooner if there is some new clinical indication. NOTE: T-SCORE=SD OF THE YOUNG ADULT MEAN.
== END | disposition home or self-care (01) ==
LOC: RADBDWWP 12:30
PROVIDERS: ATTEND Internal Medicine Geriatric Medicine
DX: M85.88 Other specified disorders of bone density and structure, other site (principal); E04.1 Nontoxic single thyroid nodule
CPT/HCPCS: 76536; 77080

== ENCOUNTER → 2024-06-21 | Outpatient (CLI) | payer MEDICARE ==
--- NOTE | 2024-06-23 09:15 | MM ---
Reason for Exam: Screening (asymptomatic). Last mammogram was performed 1 year(s) and 3 month(s) ago. Patient History: Menarche at age 14. First Full-Term at age 30. Left ovary removed at age 47. Right ovary removed at age 47. Hysterectomy at age 47. Postmenopausal. Patient used Estrogen for 3 years. Patient used Hormonal Contraceptives for 3 years. 1980, Incisional Biopsy on the Left side. Benign Excisional Biopsy on the left side. Benign Excisional Biopsy on the left side. Sister had breast cancer, age 65. Risk Values: Iveth 5 year model risk: 4.1%. NCI Lifetime model risk: 10.4%. Prior Study Comparison: 04/08/2022 Right MG 3D work up w/cad [facility], [facility]. 11/11/2022 Right MG 3D diag mammo w/cad [facility], [facility]. 03/31/2023 Bilateral MG 3D diag mammo w/cad [facility], [facility]. Tissue Density: There are scattered areas of fibroglandular density. Findings: Analyzed By CAD. There is no suspicious group of microcalcifications or new suspicious mass in either breast. Overall Assessment: Negative, BI-RAD 1 Management: Screening Mammogram of both breasts in 1 year. . Patient should continue monthly self-breast exams. A clinical breast exam by your physician is recommended on an annual basis. This exam should not preclude additional follow-up of suspicious palpable abnormalities. Note on Iveth scores and lifetime risk: 1. A Iveth score greater than 3% is considered moderate risk. If this is the case, consider specialist referral to assess eligibility for a risk reducing agent. 2. If overall lifetime risk for the development of breast cancer is 20% or higher, the patient may qualify for future screening with alternating mammogram and breast MRI. [facility], , 06/23/2024 9:13 AM. Electronically signed and approved by: Phani Boudreaux M.D. [facility]
== END | disposition home or self-care (01) ==
LOC: RADMAMWWP 13:21
PROVIDERS: ATTEND Internal Medicine Geriatric Medicine
DX: Z12.31 Encounter for screening mammogram for malignant neoplasm of breast (principal); Z90.722 Acquired absence of ovaries, bilateral; Z78.0 Asymptomatic menopausal state; Z80.3 Family history of malignant neoplasm of breast; R92.323 Mammographic fibroglandular density, bilateral breasts
CPT/HCPCS: 77063; 77067